=== PATIENT | female | born 1970 | race Caucasian/White ===

== ENCOUNTER 2024-05-30 08:35 | Outpatient (OUT) | payer OTHER, SELFPAY ==
[2024-05-30 09:08] LABS: Basophils Absolute Auto 0.1 10^3/uL (0.0-0.1); Basophils Percent Auto 0.6 % (0.2-2.0); Eosinophils Absolute Auto 0.1 10^3/uL (0.0-0.7); Eosinophils Percent Auto 0.6 % (0.9-7.0); Hematocrit 42.5 % (36.0-48.0); Immature Granulocytes Abs Auto 0.03 10^3/uL (0.00-0.03); Immature Granulocytes Pct Auto 0.3 % (0.0-0.5); Lymphocytes Absolute Auto 3.3 10^3/uL (1.2-3.8); Lymphocytes Percent Auto 35.1 % (20.5-60.0); Mean Corpuscular HGB Conc 32.9 g/dL (29.9-35.2); Mean Corpuscular Hemoglobin 30.2 pg (26.7-34.0); Mean Corpuscular Volume 91.6 fL (81.0-99.0); Mean Platelet Volume 9.9 fL (9.5-13.5); Monocytes Absolute Auto 0.6 10^3/uL (0.3-0.8); Monocytes Percent Auto 6.7 % (1.7-12.0); Neutrophils Absolute Auto 5.3 10^3/uL (1.4-6.5); Neutrophils Percent Auto 56.7 % (43.0-75.0); Platelet Count 344 10^3/uL (150-450); Red Blood Count 4.64 10^6/uL (4.20-5.40); Red Cell Distribution Width 13.2 % (11.0-15.0); White Blood Count 9.4 10^3/uL (4.0-11.0)
[2024-05-30 09:26] LABS: Estimated Average Glucose 131 mg/dL; Glycohemoglobin A1C 6.2 % (4.5-6.2)
[2024-05-30 09:26] LABS: Creatinine Urine Random 340.21 mg/dL (20.00-300.00); Microalbumin Urine Random <1.3 mg/dL (<=30.0)
[2024-05-30 09:28] LABS: Alanine Aminotransferase 62 U/L (14-59); Albumin Level 3.7 g/dL (3.4-5.0); Alkaline Phosphatase 139 U/L (46-116); Anion Gap 10.9; Aspartate Amino Transferase 28 U/L (15-37); BUN Creatinine Ratio 10.1; Bilirubin Total 0.7 mg/dL (0.2-1.0); Calcium 9.2 mg/dL (8.5-10.1); Carbon Dioxide 29.9 mmol/L (21.0-32.0); Chloride 104 mmol/L (98-107); Chol HDL Ratio 3.4; Cholesterol 139 mg/dL (<=200); Estimated GFR (African America >60 (>=60 mL/min/1.73m^2); Estimated GFR (Non-African Ame 58 (>=60 mL/min/1.73m^2); Globulin 3.6 g/dL; Glucose 109 mg/dL (74-106); HDL Cholesterol 41 mg/dL (40-60); LDL Cholesterol Calculated 74.2 mg/dL; Potassium 3.8 mmol/L (3.5-5.1); Sodium 141 mmol/L (136-145); Thyroid Stimulating Hormone 1.336 uIU/mL (0.358-3.740); Total Protein 7.3 g/dL (6.4-8.2); Triglycerides 119 mg/dL (<=150); VLDL CHOLESTEROL 23.8 mg/dL
== END 2024-05-30 08:36 | disposition home or self-care (01) ==
LOC: LAB 08:41
PROVIDERS: PCP Nurse Practitioner; Visit Provider Nurse Practitioner
DX: Z00.00 Encounter for general adult medical examination without abnormal findings (principal); E11.65 Type 2 diabetes mellitus with hyperglycemia
CPT/HCPCS: 36415; 80053; 80061; 82043; 82570; 83036; 84443; 85025

== ENCOUNTER 2024-09-26 10:16 | Outpatient (OUT) | payer OTHER, SELFPAY ==
[2024-09-26 10:52] LABS: Anion Gap 11.2; Calcium 9.2 mg/dL (8.5-10.1); Carbon Dioxide 30.6 mmol/L (21.0-32.0); Chloride 103 mmol/L (98-107); Estimated GFR (African America >60 (>=60 mL/min/1.73m^2); Estimated GFR (Non-African Ame 58 (>=60 mL/min/1.73m^2); Glucose 152 mg/dL (74-106); Potassium 3.8 mmol/L (3.5-5.1); Sodium 141 mmol/L (136-145)
== END 2024-09-26 10:17 | disposition home or self-care (01) ==
LOC: LAB 10:19
PROVIDERS: PCP Nurse Practitioner
DX: I25.10 Atherosclerotic heart disease of native coronary artery without angina pectoris (principal)
CPT/HCPCS: 36415; 80048

== ENCOUNTER 2024-12-22 09:28 | Outpatient (OUT) | payer OTHER, SELFPAY ==
--- OUTSIDE RECORDS SUMMARY | 2024-12-22 09:48 | XMS_ITS | CCD ---
Author Organization [facility] Care Team Providers Care Manager Continuous Improvement Name Role Phone DR CEZAR SAHNI Consulting Unavailable PAY, DR CORONADO Attending Unavailable PAY, DR CORONADO Admitting Unavailable PAY, DR CORONADO Consulting Unavailable GRECHNY, SYED CROOKS Consulting Unavailable Anderson ACCOUNT RESOLUTION SPECIALIST-PRESSFITTER, Ezio J Primary Care [facility] er Anderson ACCOUNT RESOLUTION SPECIALIST-PRESSFITTER, Ezio J Primary Care [facility] er MARIIA DOWELL Attending Unavailable ANDERSONEZIO KRISHNAMURTHY Referring Unavailable ANDERSON, EZIO J Primary Care Unavailable ANDERSONEZIO J Attending Unavailable ANDERSONALLEYEZIO J Referring Unavailable ANDERSON, EZIO J Primary Care Unavailable ANDERSONALLEYEZIO J Attending Unavailable ANDERSONALLEYEZIO J Referring Unavailable ANDERSON, EZIO J Primary Care Unavailable ANDERSON, EZIO J Attending Unavailable ANDERSON, EZIO J Referring Unavailable ANDERSON, EZIO J Primary Care Unavailable Allergies Allergy Classification Reported Allergen(s) Allergy Type Date of Onset Reaction(s) Facility (16 sources) Blue Dye; Translations: [BLUE DYE] Drug allergy (disorder) 10-10-2021 [facility] Repository Medications Current Medications Medication Drug Class(es) Dates Sig (Normalized) Sig (Original) aspirin 81 mg delayed release oral tablet (6 sources) Platelet Aggregation Inhibitor, Nonsteroidal Anti-inflammatory Drug Start: 08-28-2023 take 1 tablet by mouth in the morning aspirin 81 mg TAKE 1 TABLET (81 MG TOTAL) BY MOUTH IN THE MORNING 30 tablet 11 08/28/2023 Active Start: 11-24-2022 End: 08-28-2023 take 1 tablet by mouth in the morning aspirin 81 mg Take 1 tablet (81 mg total) by mouth in the morning. 30 tablet 9 11/24/2022 08/28/2023 Discontinued atorvastatin 80 mg oral tablet (17 sources) HMG-CoA Reductase Inhibitor Start: 05-05-2024 End: 10-09-2024 take 1 tablet by mouth once daily atorvastatin (LIPITOR) 80 mg tablet Indications: Mixed hyperlipidemia Take 1 tablet (80 mg total) by mouth nightly. 90 tablet 1 10/09/2024 Active Start: 02-28-2023 End: 05-03-2024 take 1 tablet by mouth once daily atorvastatin (LIPITOR) 80 mg tablet Indications: Mixed hyperlipidemia Take 1 tablet (80 mg total) by mouth nightly. 90 tablet 2 07/16/2023 05/03/2024 Discontinued (Reorder) blood-glucose meter kit (13 sources) Start: 04-03-2023 blood-glucose meter kit Indications: Type 2 diabetes mellitus with hyperglycemia, without long-term current use of insulin ([facility] Monitor blood sugars twice daily 1 each 04/03/2023 Active Start: 04-03-2023 blood-glucose meter kit Indications: Type 2 diabetes mellitus with hyperglycemia, without long-term current use of insulin ([facility] Monitor blood sugars twice daily 1 each 0 04/03/2023 Active calcium carbonate 1500 mg oral tablet (8 sources) take 1 tablet by mouth once daily at breakfast calcium carbonate (OS-ADRI) 600 mg elemental (1,500 mg) tablet Take 1 tablet (600 mg total) by mouth daily with breakfast. Active clopidogrel 75 mg oral tablet (17 sources) P2Y12 Platelet Inhibitor Start: 023 End: 025 take 1 tablet by mouth in the morning clopidogreL (PLAVIX) 75 mg tablet Indications: HTN (hypertension), benign TAKE 1 TABLET (75 MG TOTAL) BY MOUTH IN THE MORNING 90 tablet 2 07/04/2024 Active isopropyl alcohol 0.7 ml/ml medicated pad (13 sources) Start: alcohol swabs (ALCOHOL PREP PADS) pads, medicated Indications: Type 2 diabetes mellitus with hyperglycemia, without long-term current use of insulin ([facility]) Apply 1 Pad topically in the morning and at bedtime. 100 each 3 04/03/2023 Active losartan potassium 50 mg oral tablet (2 sources) Angiotensin 2 Receptor Daniel Start: 025 take 1 tablet by mouth in the morning losartan (COZAAR) 50 mg tablet Indications: Primary hypertension Take 1 tablet (50 mg total) by mouth in the morning. 30 tablet 11 09/08/2024 Active spironolactone 25 mg oral tablet (17 sources) Aldosterone Antagonist Start: 023 End: 025 take 1 tablet by mouth in the morning spironolactone (ALDACTONE) 25 mg tablet Indications: HTN (hypertension), benign TAKE 1 TABLET (25 MG TOTAL) BY MOUTH IN THE MORNING 90 tablet 1 07/04/2024 Active tiZANidine 4 mg oral tablet (9 sources) Central alpha-2 Adrenergic Agonist Start: 024 take 1 tablet by mouth every eight hours as needed for muscle spasms tiZANidine (ZANAFLEX) 4 mg tablet Indications: Back muscle spasm Take 1 tablet (4 mg total) by mouth every 8 (eight) hours as needed for muscle spasms. 30 tablet 1 05/27/2024 Active Start: 02-28-2023 take 1 tablet by lela th every eight hours as needed for muscle spasms tiZANidine (ZANAFLEX) 4 mg tablet Indications: Back muscle spasm Take 1 tablet (4 mg total) by mouth every 8 (eight) hours as needed for muscle spasms. May cause drowsiness 10 tablet 0 02/28/2023 Active Completed/Discontinued Medications Medication Drug Class(es) Dates Sig (Normalized) Sig (Original) ibuprofen 800 mg oral tablet (13 sources) Nonsteroidal Anti-inflammatory Drug Start: 02-28-2023 End: 10-09-2024 take 1 tablet by mouth every eight hours as needed for pain ibuprofen (MOTRIN) 800 mg tablet Indications: Back pain of lumbar region with sciatica Take 1 tablet (800 mg total) by mouth every 8 (eight) hours as needed for pain. Take with food 40 tablet 1 02/28/2023 10/09/2024 Discontinued (Therapy completed) meloxicam 15 mg oral tablet (1 source) Nonsteroidal Anti-inflammatory Drug Start: 03-21-2023 End: 07-16-2023 take 1 tablet by mouth in the morning meloxicam (MOBIC) 15 mg tablet Indications: Back pain of lumbar region with sciatica Take 1 tablet (15 mg total) by mouth in the morning. Stop Motrin, ibuprofen, Aleve, naproxen while taking this medication. 90 tablet 1 03/21/2023 07/16/2023 Discontinued (Therapy completed) 24 hr metFORMIN hydrochloride 500 mg extended release oral tablet (3 sources) Biguanide Start: 04-03-2023 End: 08-02-2023 take 1 tablet by mouth once daily at breakfast metFORMIN XR (GLUCOPHAGE XR) 500 mg 24 hr tablet Indications: Type 2 diabetes mellitus with hyperglycemia, without long-term current use of insulin ([facility]) Take 1 tablet (500 mg total) by mouth daily with breakfast. 90 tablet 1 07/16/2023 08/02/2023 Discontinued (Therapy completed) 24 hr metoprolol succinate 25 mg extended release oral tablet (16 sources) beta-Adrenergic Daniel Start: 07-04-2024 End: 09-08-2024 take 1 tablet by mouth every twenty-four hours in the morning metoprolol succinate XL (TOPROL XL) 25 mg 24 hr tablet Indications: HTN (hypertension), benign TAKE 1 TABLET (25 MG TOTAL) BY MOUTH IN THE MORNING 90 tablet 1 07/04/2024 09/08/2024 Discontinued (Therapy completed) Start: 01-12-2023 End: 07-04-2024 take 1 tablet by mouth every twenty-four hours in the morning metoprolol succinate XL (TOPROL XL) 25 mg 24 hr tablet Indications: HTN (hypertension), benign , NSTEMI (non-ST elevated myocardial infarction) ([facility]) Take 1 tablet (25 mg total) by mouth in the morning. 90 tablet 1 11/21/2023 Active peg 3350-sod sulf,chlr-pot-m ag 178.7-7.3-0.5 gram recon soln (1 source) Start: 08-12-2023 End: 08-24-2023 peg 3350-sod sulf,chlr-pot-m ag 178.7-7.3-0.5 gram recon soln Indications: Personal history of colonic polyps Take one container twice as directed by scheduled instructions 2 each 0 08/12/2023 08/24/2023 Discontinued (Therapy completed) Problems Active Problems Problem Classification Problem Date Documented Da te Episodic/Chronic Acute cerebrovascular disease (14 sources) Cerebral infarction, unspecified; Translations: [Cerebrovascular accident] Onset: 10-10-2021 02-27-2022 Chronic Acute cerebrovascular disease (1 source) NIHSS score 6; Translations: [NIHSS SCORE 6] Onset: 10-12-2021 Episodic Acute myocardial infarction (20 sources) Non-ST elevation (NSTEMI) myocardial infarction; Translations: [Myocardial infarction] Onset: 10-10-2021 02-27-2022 Chronic Coronary atherosclerosis and other heart disease (20 sources) Coronary atherosclerosis; Translations: [Atherosclerotic heart disease of [place] coronary artery without angina pectoris] Onset: 10-10-2021 Resolved: 09-04-2023 09-04-2023 Chronic Diabetes mellitus with complications (7 sources) Hyperglycemia due to type 2 diabetes mellitus; Translations: [Type 2 diabetes mellitus with hyperglycemia] Onset: 11-21-2023 05-27-2024 Chronic Diabetes mellitus without complication (2 sources) Patient encounter status; Translations: [Type 1 diabetes mellitus without complications] Onset: 11-21-2023 11-21-2023 Chronic Disorders of lipid metabolism (18 sources) Mixed hyperlipidemia; Translations: [Mixed hyperlipidemia] Onset: 04-03-2023 05-27-2024 Chronic Essential hypertension (20 sources) Benign hypertension; Translations: [Essential (primary) hypertension] Onset: 04-03-2023 05-27-2024 Chronic Hypertension with complications and secondary hypertension (1 source) Hypertensive emergency; Translations: [HYPERTENSIVE EMERGENCY] Onset: 10-12-2021 Chronic Nonspecific chest pain (4 sources) Other chest pain; Translations: [Chest pain, unspecified] Onset: 10-10-2021 Episodic Other endocrine disorders (1 source) Hypoglycemia; Translations: [Hypoglycemia, unspecified] 08-02-2023 Chronic Other nervous system disorders (1 source) Aphasia; Translations: [APHASIA] Onset: 10-12-2021 Chronic Substance-related disorders (1 source) Nicotine dependence, cigarettes, uncomplicated; Translations: [NICOTINE DEPEND CIGARETTES UNCOMP] Onset: 10-12-2021 Chronic Unclassified (1 source) CONTACT W/AND (SUSP) EXPOS COVID-19; Translations: [CONTACT W/AND (SUSP) EXPOS COVID-19] Onset: 10-12-2021 Unclassified (1 source) Annual Exam Onset: 05-27-2024 Past or Other Problems Problem Classification Problem Date Documented Da te Episodic/Chronic Mood disorders (13 sources) Mood disorders Onset: 05-27-2024 Resolved: 10-09-2024 05-27-2024 Noninfectious gastroenteritis (11 sources) Non-specific colitis; Translations: [Noninfective gastroenteritis and colitis, unspecified] Onset: 08-24-2023 08-24-2023 Episodic Other and unspecified benign neoplasm (13 sources) Polyp of sigmoid colon; Translations: [Polyp of colon] Onset: 08-04-2022 08-04-2022 Episodic Other and unspecified benign neoplasm (11 sources) History of polyp of colon; Translations: [History of colonic polyps] Onset: 08-12-2023 02-26-2024 Episodic Other and unspecified benign neoplasm (11 sources) Polyp of transverse colon; Translations: [Polyp of colon] Onset: 08-24-2023 08-24-2023 Episodic Other gastrointestinal disorders (13 sources) Abnormal feces; Translations: [Other fecal abnormalities] Onset: 07-19-2022 07-19-2022 Episodic Other screening for suspected conditions (not mental disorders or infectious disease) (4 sources) Patient encounter status; Translations: [Encounter for screening mammogram for malignant neoplasm of breast] Onset: 11-21-2023 05-27-2024 Episodic Spondylosis; intervertebral disc disorders; other back problems (2 sources) Spasm of back muscles; Translations: [Muscle spasm of back] Onset: 05-27-2024 05-27-2024 Episodic Unclassified (13 sources) Onset: 05-27-2024 Resolved: 10-09-2024 05-27-2024 Results Test Name Value Interpretation Reference Range Facil ity POCT EKGon 09-08-2024 [facility] POCT Hemoglobin A1con 2023 HbA1c (Bld) [Mass fraction] 6.0 g/dL 4 - 7 g/dL [facility] POCT Hemoglobin A1con 2023 HbA1c (Bld) [Mass fraction] 5.9 g/dL 4 - 7 g/dL [facility] BNPon 10-10-2021 Natriuretic peptide B (Bld) [Mass/Vol] 108.0 pg/mL Normal <=900.0 [facility] Comment on above: Performed By: #### T SH, CMADM, LIPA, CMP, BNP #### [facility] [address] [place] [address] Dr. Pollo Dyson CARDIAC DENISE ADMITon 022 CK [Catalytic activity/Vol] 275 U/L Critically high 26-192 [facility] Comment on above: Performed By: #### T SH, CMADM, LIPA, CMP, BNP #### [facility] [address] [address] [address] Pollo Dyson CK.MB [Mass/Vol] 10.38 ng/mL Critically high <=3.60 [facility] Comment on above: Result Comment: TEST REPEATED CRITICAL VALUE VERIFIED Performed By: #### T SH, CMADM, LIPA, CMP, BNP #### [facility] [address] [address] [address] Pollo Dyson HSTROP 2475.4 pg/mL Critically high 4.0-51.3 [facility] Comment on above: Result Comment: CUT- OFF POINTS HAVE BEEN ESTABLISHED BASED ON THE FOURTH UNIVERSAL DEFINITIONS OF MYOCARDIAL INFARCTION. THE UPPER REFERENCE LIMIT (URL) OF TROPONIN, DEFINED THE 99TH PERCENTILE OF cTnI DISTRIBUTION IN A REFERENCE POPULATION, HAS BEEN CONFIRMED THE DECISION THRESHOLD FOR MT DIAGNOSIS. TEST REPEATED CRITICAL VALUE VERIFIED Performed By: #### T SH, CMADM, LIPA, CMP, BNP #### [facility] [address] [address] [address] Pollo Dyson FAZAL 497 ng/mL Critically high 9-82 [facility] Comment on above: Result Comment: TEST REPEATED CRITICAL VALUE VERIFIED Performed By: #### T SH, CMADM, LIPA, CMP, BNP #### [facility] [address] [address] [address] Pollo Dyson CBC AUTO DIFFon 10-10-2021 BASO # 0.1 103/ul Normal 0.0-0.1 [facility] Comment on above: Performed By: #### P T, DDIM, PTT #### [facility] [address] [address] [address] Pollo Dyson Basophils/100 WBC (Bld) 0.5 % Normal 0.2-2.0 [facility] Comment on above: Performed By: #### P T, DDIM, PTT #### [facility] [address] [place] [address] Dr. Pollo Dyson EO # 0.0 103/ul Normal 0.0-0.7 [facility] Comment on above: Performed By: #### P T, DDIM, PTT #### [facility] [address] [place] [address] Dr. Pollo Dyson Eosinophils/100 WBC (Bld) 0.1 % Critically low 0.9-7.0 [facility] Comment on above: Performed By: #### P T, DDIM, PTT #### [facility] [address] [place] [address] Dr. Pollo Dyson Erythrocyte distribution width (RBC) [Ratio] 14.3 % Normal 11.0-15.0 [facility] Comment on above: Performed By: #### P T, DDIM, PTT #### [facility] [address] [place] [address] Dr. Pollo Dyson Hematocrit (Bld) [Volume fraction] 45.9 % Normal 36.0-48.0 [facility] Comment on above: Performed By: #### P T, DDIM, PTT #### [facility] [address] [place] [address] Dr. Pollo Dyson Hemoglobin (Bld) [Mass/Vol] 15.4 g/dL Normal 12.0-16.0 [facility] Comment on above: Performed By: #### P T, DDIM, PTT #### [facility] [address] [place] [address] Dr. Pollo Dyson IG # 0.05 10e3/ul Critically high 0.00-0.03 [facility] Comment on above: Performed By: #### P T, DDIM, PTT #### [facility] [address] [place] [address] Dr. Pollo Dyson IG % 0.3 % Normal 0.0-0.5 [facility] Comment on above: Performed By: #### P T, DDIM, PTT #### [facility] [address] [place] [address] Dr. Pollo Dyson LYMPH # 2.2 103/ul Normal 1.2-3.8 [facility] Comment on above: Performed By: #### P T, DDIM, PTT #### [facility] [address] [place] [address] Dr. Pollo Dyson Lymphocytes/100 WBC (Bld) 13.8 % Critically low 20.5-60.0 [facility] Comment on above: Performed By: #### P T, DDIM, PTT #### [facility] [address] [place] [address] Dr. Pollo Dyson MANUAL DIFF REQ NO Normal [facility] Comment on above: Performed By: #### P T, DDIM, PTT #### [facility] [address] [place] [address] Dr. Pollo Dyson MCH (RBC) [Entitic mass] 29.9 pg Normal 26.7-34.0 [facility] Comment on above: Performed By: #### P T, DDIM, PTT #### [facility] [address] [place] [address] Dr. Pollo Dyson MCHC (RBC) [Mass/Vol] 33.6 g/dL Normal 29.9-35.2 [facility] Comment on above: Performed By: #### P T, DDIM, PTT #### [facility] [address] [place] [address] Dr. Pollo Dyson MCV (RBC) [Entitic vol] 89.1 fL Normal 81.0-99.0 [facility] Comment on above: Performed By: #### P T, DDIM, PTT #### [facility] [address] [place] [address] Dr. Pollo Dyson MONO # 0.7 103/ul Normal 0.3-0.8 [facility] Comment on above: Performed By: #### P T, DDIM, PTT #### [facility] [address] [place] [address] Dr. Pollo Dyson Monocytes/100 WBC (Bld) 4.3 % Normal 1.7-12.0 [facility] Comment on above: Performed By: #### P T, DDIM, PTT #### [facility] [address] [address] [address] Pollo Dyson NEUT # 12.9 103/ul Critically high 1.4-6.5 [facility] Comment on above: Performed By: #### P T, DDIM, PTT #### [facility] [address] [place] [address] Dr. Pollo Dyson Neutrophils/100 WBC (Bld) 81.0 % Critically high 43.0-75.0 [facility] Comment on above: Performed By: #### P T, DDIM, PTT #### [facility] [address] [place] [address] Dr. Pollo Dyson Platelet mean volume (Bld) [Entitic vol] 9.7 fL Normal 9.5-13.5 [facility] Comment on above: Performed By: #### P T, DDIM, PTT #### [facility] [address] [place] [address] Dr. Pollo Dyson PLT 428 103/ul Normal 150-450 [facility] Comment on above: Performed By: #### P T, DDIM, PTT #### [facility] [address] [place] [address] Dr. Pollo Dyson RBC 5.15 106/ul Normal 4.20-5.40 [facility] Comment on above: Performed By: #### P T, DDIM, PTT #### [facility] [address] [place] [address] Dr. Pollo Dyson WBC 15.9 103/ul Critically high 4.0-11.0 [facility] Comment on above: Performed By: #### P T, DDIM, PTT #### [facility] [address] [place] [address] STROKE HEAD WOon 10-11-19 CT STROKE HEAD WO EXAMINATION: CT STROKE HEAD WO HISTORY: CHEST PAIN, UNSPECIFIED COMPARISON: No relevant comparison available. TECHNIQUE: Axial CT images were obtained without IV contrast. Dose reduction techniques were achieved by using automated exposure control and/or adjustment of mA and/or kV according to patient size and/or use of iterative reconstruction technique. FINDINGS: BRAIN: No edema, hemorrhage, mass, acute infarction, or inappropriate atrophy. CSF SPACES: No hydrocephalus, subarachnoid hemorrhage, or mass. Appropriate for age. SKULL: No fracture, mass, or other significant visible lesion. SINUSES: No significant mucosal thickening or fluid on the limited views. ORBITS: No appreciable abnormality on the limited views. OTHER: Negative IMPRESSION: 1. No intracranial hemorrhage. 2. Normal CT appearance of the brain. Electronically authenticated by: CEZAR SAHNI Date: 2021-10-10 16:10 Normal [facility] CTA ABD/PELVIS WO W CONon CTA ABD/PELVIS WO W CON EXAMINATION: CTA CHEST WO W CON, CTA ABD/PELVIS WO W CON HISTORY: CHEST PAIN, UNSPECIFIED COMPARISON: No relevant comparison available. TECHNIQUE: After obtaining the patient's consent, CT images of the chest, abdomen and pelvis were obtained with non-ionic intravenous contrast material. Axial, Coronal, and Sagittal images. Multi-planar reformatted/3-D images were created to optimize visualization of vascular anatomy. Dose reduction techniques were achieved by using automated exposure control and/or adjustment of mA and/or kV according to patient size and/or use of iterative reconstruction technique. FINDINGS: PULM VASC: No pulmonary embolism or abnormal opacity. LUNGS: No visible pulmonary disease. PLEURA: No mass, effusion, or pneumothorax. JENNIFER: No mass or adenopathy. MEDIASTINUM: No mass or adenopathy. CARDIAC: No enlargement, pericardial effusion, or pericardial thickening. CHEST WALL: No mass or axillary adenopathy. AORTA/VASCULAR: Moderate-marked noncalcified plaque within the distal aorta with marked narrowing at bifurcation. Moderate narrowing of left common iliac artery. No aneurysm. CELIAC ARTERY: Normal celiac vessels. SMA: Normal mesenteric vessels. RENAL ARTERIES: Normal renal vessels. LIVER: No enlargement, atrophy, abnormal density, or significant focal lesion. BILIARY: No visible dilatation or calcification. PANCREAS: No lesion, fluid collection, ductal dilatation, or atrophy. SPLEEN: No enlargement or focal lesion. ADRENALS: Mild left adrenal gland hypertrophy. KIDNEYS: No mass, obstruction, or calcification. BOWEL/MESENTERY: No visible mass, obstruction, or bowel wall thickening. RETROPERITONEUM: No mass or adenopathy. ABDOMINAL WALL: No mass or hernia. BONES: No bony lesion or fracture. OTHER: Negative. IMPRESSION: 1. No pulmonary embolism or pulmonary infiltrates. 2. Atherosclerotic narrowing of the distal aorta without aneurysm or obstruction. 3. No acute or suspicious findings to account for patient's symptoms. Electronically authenticated by: CEZAR SAHNI Date: 2021-10-10 16:24 Normal [facility] Covid-19 PCR (CVDTB)on 09-25 SARS-CoV-2 (COVID-19) RNA THERESE+probe Ql (Unsp spec) Not detected Normal NOT DETECTED [facility] Comment on above: Result Comment: This test is not yet approved or cleared by the [place] FDA. When there are no FDA-approved or cleared tests available, and other criteria are met, FDA can make tests available under an emergency access mechanism called an Emergency Use Authorization (EUA). The EUA for this test is supported by the [place] of Health and Human Service's (HHS's) declaration that circumstances exist to justify the emergency use of in vitro diagnostics for the detection and/or diagnosis of the virus that causes COVID-19. This EUA will remain in effect (meaning this test can be used) for the duration of the COVID-19 declaration justifying emergency of IVDs, unless it is terminated or revoked by FDA (after which the test may no longer be used). When diagnostic testing is negative, the possibility of a false negative should be considered in the context of a patient's recent exposures and the presence of clinical signs and symptoms consistent with SARS-CoV-2. Performed By: #### P T, DDIM, PTT #### [facility] [address], [place] [address] Dr. Pollo Dyson D-DIMERon 10-10-2021 D-DIMER 0.31 mg/L FEU Normal <=0.59 [facility] Comment on above: Performed By: #### P T, DDIM, PTT #### [facility] [address], [place] [address] Dr. Pollo Dyson D-DIMER COMMENTS SEE BELOW Normal [facility] Comment on above: Result Comment: Incr eases in D-Dimer concentration observed with thromboembolic events can be variable due to localization, size, and age of the thrombus. Therefore, a thromboembolic event cannot be diagnosed with certainty on the basis of the reference range. D-Dimers may also be elevated for a variety of disorders including: advanced age, , coronary disease, cancer, liver disease, infection, inflammation, hematoma, DIC, trauma, post-surgery, diabetes, thrombolytic or anticoagulant therapy, stress, and generalized hospitalization. Performed By: #### P T, DDIM, PTT #### [facility] [address] [place] [address] Dr. Pollo Dyson LIPASEon 10-10-2021 Lipase [Catalytic activity/Vol] 76.0 U/L Normal 73.0-393.0 [facility] Comment on above: Performed By: #### T SH, CMADM, LIPA, CMP, BNP #### [facility] [address] [address] [address] Pollo Dyson POINT OF CARE GLUCOSEon 09-25 Glucose [Mass/Vol] 118 mg/dL Critically high 74-106 [facility] Comment on above: Performed By: #### P T, DDIM, PTT #### [facility] [address] [place] [address] Dr. Pollo Dyson Glucose [Mass/Vol] 127 mg/dL Critically high 74-106 [facility] Comment on above: Performed By: #### P T, DDIM, PTT #### [facility] [address] [place] [address] Dr. Pollo Dyson PROF 14(COMP METB)on 022 Albumin [Mass/Vol] 3.9 g/dL Normal 3.4-5.0 [facility] Comment on above: Performed By: #### T SH, CMADM, LIPA, CMP, BNP #### [facility] [address] [place] [address] Dr. Pollo Dyson Albumin/Globulin [Mass ratio] 0.9 {ratio} Normal [facility] Comment on above: Performed By: #### T SH, CMADM, LIPA, CMP, BNP #### [facility] [address] [place] [address] Dr. Pollo Dyson ALP [Catalytic activity/Vol] 132 U/L Critically high 46-116 [facility] Comment on above: Performed By: #### T SH, CMADM, LIPA, CMP, BNP #### [facility] [address] [place] [address] Dr. Pollo Dyson ALT [Catalytic activity/Vol] 36 U/L Normal 14-59 [facility] Comment on above: Performed By: #### T SH, CMADM, LIPA, CMP, BNP #### [facility] [address] [place] [address] Dr. Pollo Dyson Anion gap [Moles/Vol] 15.6 mmol/L Normal [facility] Comment on above: Performed By: #### T SH, CMADM, LIPA, CMP, BNP #### [facility] [address] [place] [address] Dr. Pollo Dyson AST [Catalytic activity/Vol] 47 U/L Critically high 15-37 [facility] Comment on above: Performed By: #### T SH, CMADM, LIPA, CMP, BNP #### [facility] [address] [place] [address] Dr. Pollo Dyson Bilirubin [Mass/Vol] 0.3 mg/dL Normal 0.2-1.0 [facility] Comment on above: Performed By: #### T SH, CMADM, LIPA, CMP, BNP #### [facility] [address] [place] [address] Dr. Pollo Dyson Calcium [Mass/Vol] 9.2 mg/dL Normal 8.5-10.1 [facility] Comment on above: Performed By: #### T SH, CMADM, LIPA, CMP, BNP #### [facility] [address] [place] [address] Dr. Pollo Dyson Chloride [Moles/Vol] 101 mmol/L Normal 98-107 [facility] Comment on above: Performed By: #### T SH, CMADM, LIPA, CMP, BNP #### [facility] [address] [place] [address] Dr. Pollo Dyson CO2 [Moles/Vol] 24.9 mmol/L Normal 21.0-32.0 [facility] Comment on above: Performed By: #### T SH, CMADM, LIPA, CMP, BNP #### [facility] [address] [address] [address] Pollo Dyson Creatinine [Mass/Vol] 0.80 mg/dL Normal 0.55-1.02 [facility] Comment on above: Performed By: #### T SH, CMADM, LIPA, CMP, BNP #### [facility] [address] [address] [address] Pollo Dyson EGFR-AF GHANAIAN >60 Normal >=60 [facility] Comment on above: Performed By: #### T SH, CMADM, LIPA, CMP, BNP #### [facility] [address] [place] [address] Dr. Pollo Dyson EGFR-NON AF GHANAIAN >60 Normal >=60 [facility] Comment on above: Performed By: #### T SH, CMADM, LIPA, CMP, BNP #### [facility] [address] [place] [address] Dr. Pollo Dyson Globulin (S) [Mass/Vol] 4.3 g/dL Normal [facility] Comment on above: Performed By: #### T SH, CMADM, LIPA, CMP, BNP #### [facility] [address] [place] [address] Dr. Pollo Dyson Glucose [Mass/Vol] 128 mg/dL Critically high 74-106 [facility] Comment on above: Performed By: #### T SH, CMADM, LIPA, CMP, BNP #### [facility] [address] [place] [address] Dr. Pollo Dyson Potassium [Moles/Vol] 3.5 mmol/L Normal 3.5-5.1 [facility] Comment on above: Performed By: #### T SH, CMADM, LIPA, CMP, BNP #### [facility] [address] [place] [address] Dr. Pollo Dyson Protein [Mass/Vol] 8.2 g/dL Normal 6.4-8.2 [facility] Comment on above: Performed By: #### T SH, CMADM, LIPA, CMP, BNP #### [facility] [address] [place] [address] Dr. Pollo Dyson Sodium [Moles/Vol] 138 mmol/L Normal 136-145 [facility] Comment on above: Performed By: #### T SH, CMADM, LIPA, CMP, BNP #### [facility] [address] [place] [address] Dr. Pollo Dyson Urea nitrogen [Mass/Vol] 11.0 mg/dL Normal 7.0-18.0 [facility] Comment on above: Performed By: #### T SH, CMADM, LIPA, CMP, BNP #### [facility] [address] [address] [address] Pollo Dyson Urea nitrogen/Creatinin e [Mass ratio] 13.8 mg/mg Normal [facility] Comment on above: Performed By: #### T SH, CMADM, LIPA, CMP, BNP #### [facility] [address] [place] [address] Dr. Pollo Dyson PROTIMEon 10-10-2021 INR Coag (PPP) [Relative time] 1.01 {INR} Normal [facility] Comment on above: Performed By: #### P T, DDIM, PTT #### [facility] [address] [place] [address] Dr. Pollo Dyson INR GUIDELINES SEE BELOW Normal [facility] Comment on above: Result Comment: MYLA RED INR: 2.0 - 3.0 CONDITIONS NOT LISTED BELOW 2.5 - 3.5 FOR PROSTHETIC HEART VALVE REPLACEMENT 2.5 - 3.5 RECURRENT THROMBOSIS Performed By: #### P T, DDIM, PTT #### [facility] [address] [place] [address] Dr. Pollo Dyson PT Coag (PPP) [Time] 10.9 s Normal 9.0-11.6 [facility] Comment on above: Performed By: #### P T, DDIM, PTT #### [facility] [address] [place] [address] Dr. Pollo Dyson PTTon 10-10-2021 aPTT Coag (Bld) [Time] 33.1 s Normal 22.3-36.2 [facility] Comment on above: Performed By: #### P T, DDIM, PTT #### [facility] [address] [address] [address] Pollo Dyson TSHon 10-10-2021 TSH 0.618 uIU/mL Normal 0.358-3.[address] [facility] Comment on above: Performed By: #### T SH, CMADM, LIPA, CMP, BNP #### [facility] [address] [address] [address] Pollo Dyson TSH RANGE SEE BELOW Normal [facility] Comment on above: Result Comment: <0.3 4 UIU/ml HYPERTHYROID 0.34-5.60 UIU/ml EUTHYROID >5.60 UIU/ml HYPOTHYROID Performed By: #### T SH, CMADM, LIPA, CMP, BNP #### [facility] [address] [place], [place] [address] Dr. Pollo Dyson XR CHEST 1 Von 10-10-2021 XR CHEST 1 V EXAMINATION: XR CHES T 1 V HISTORY: CHEST PAIN, UNSPECIFIED , bilateral arm pain COMPARISON: No relevant comparison available. FINDINGS: LUNGS: No significant pulmonary parenchymal abnormalities. VASCULATURE: No increased pulmonary vasculature. PLEURA: No pneumothorax, effusion, or pleural thickening. CARDIAC: No cardiomegaly or cardiac silhouette abnormality. MEDIASTINUM: No visible mass or adenopathy. BONES: No fracture or visible bone lesion. OTHER: Negative. IMPRESSION: 1. No acute cardiopulmonary process. Electronically authenticated by: CEZAR SAHNI Date: 2021-10-10 14:41 Normal [facility] Vital Signs Date Time Vital Sign Value Performing Clinician Facility 10-09-2024 13:08-0400 Body height 162.6 cm Ezio Andersonramon [employer] Work Phone: [facility] 10-09-2024 13:08-0400 Body mass index (BMI) [Ratio] 33.8 kg/m2 Ezio Anderson [employer] Work Phone: [facility] 10-09-2024 13:08-0400 Body temperature 97.39 [degF] Ezio Anderson [employer] Work Phone: [facility] 10-09-2024 13:08-0400 Body weight 89.36 kg Ezio Anderson APRN-KYM Work Phone: [facility] 10-09-2024 13:08-0400 Diastolic blood pressure 82 mm[Hg] Ezio Anderson APRN-KYM Work Phone: [facility] 10-09-2024 13:08-0400 Heart rate 87 /min Ezio Anderson APRN-KYM Work Phone: [facility] 10-09-2024 13:08-0400 Respiratory rate 18 /min Ezio Anderson APRN-KYM Work Phone: [facility] 10-09-2024 13:08-0400 SaO2% (BldA) [Mass fraction] 96 % Ezio Anderson APRN-KYM Work Phone: [facility] 10-09-2024 13:08-0400 Systolic blood pressure 138 mm[Hg] Ezio Anderson APRN-KYM Work Phone: [facility] 09-08-2024 12:47-0400 Body height 162.6 cm Mariia Dowell MD Work Phone: [facility] 09-08-2024 12:47-0400 Body mass index (BMI) [Ratio] 34.16 kg/m2 Mariia Dowell MD Work Phone: [facility] 09-08-2024 12:47-0400 Body weight 90.27 kg Mariia Dowell MD Work Phone: [facility] 09-08-2024 12:47-0400 Diastolic blood pressure 96 mm[Hg] Mariia Dowell MD Work Phone: [facility] 09-08-2024 12:47-0400 Heart rate 81 /min Mariia Dowell MD Work Phone: [facility] 09-08-2024 12:47-0400 SaO2% (BldA) [Mass fraction] 97 % Mariai Dowell MD Work Phone: [facility] 09-08-2024 12:47-0400 Systolic blood pressure 148 mm[Hg] Mariia Dowell MD Work Phone: [facility] 05-27-2024 07:29-0500 Body height 162.6 cm Ezio Anderson ACCOUNT RESOLUTION SPECIALIST-PRESS[employer]IT[employer] Work Phone: [facility] 05-27-2024 07:29-0500 Body mass index (BMI) [Ratio] 34.74 kg/m2 Ezio Anderson ACCOUNT RESOLUTION SPECIALIST-[employer]TER Work Phone: [facility] 05-27-2024 07:29-0500 Body temperature 97.3 [degF] Ezio Davisillo ACCOUNT RESOLUTION SPECIALIST-PRESS[employer]TER Work Phone: [facility] 05-27-2024 07:29-0500 Body weight 91.81 kg Ezio Davisillo ACCOUNT RESOLUTION SPECIALIST-[employer]TER Work Phone: [facility] 05-27-2024 07:29-0500 Diastolic blood pressure 80 mm[Hg] Ezio Davisillo ACCOUNT RESOLUTION SPECIALIST-[employer]TER Work Phone: [facility] 05-27-2024 07:29-0500 Heart rate 71 /min Ezio Anderson ACCOUNT RESOLUTION SPECIALIST-PRESS[employer]TER Work Phone: [facility] 05-27-2024 07:29-0500 SaO2% (BldA) [Mass fraction] 96 % Ezio Anderson ACCOUNT RESOLUTION SPECIALIST-PRESSFITTER Work Phone: [facility] 05-27-2024 07:29-0500 Systolic blood pressure 120 mm[Hg] Ezio aDvisillo ACCOUNT RESOLUTION SPECIALIST-PRESSF[employer]TER Work Phone: [facility] 11-21-2023 07:55-0400 Body height 162.6 cm Ezio Anderson ACCOUNT RESOLUTION SPECIALIST-PRESSFITTER Work Phone: [facility] 11-21-2023 07:55-0400 Body mass index (BMI) [Ratio] 33.78 kg/m2 Ezio Anderson APRN-KYM Work Phone: [facility] 11-21-2023 07:55-0400 Body temperature 97.3 [degF] Ezio Anderson APRN-KYM Work Phone: [facility] 11-21-2023 07:55-0400 Body weight 89.27 kg Ezio Anderson APRN-PRESSFITTER Work Phone: [facility] 11-21-2023 07:55-0400 Diastolic blood pressure 82 mm[Hg] Ezio Anderson APRN-KYM Work Phone: [facility] 11-21-2023 07:55-0400 Heart rate 71 /min Ezio Anderson APRN-KYM Work Phone: [facility] 11-21-2023 07:55-0400 SaO2% (BldA) [Mass fraction] 96 % Ezio Anderson APRN-KYM Work Phone: [facility] 11-21-2023 07:55-0400 Systolic blood pressure 130 mm[Hg] Ezio Anderson APRN-KYM Work Phone: [facility] 08-23-2023 10:29-0400 Body height 162.6 cm [facility] 1 [facility] 08-23-2023 10:29-0400 Body mass index (BMI) [Ratio] 32.61 kg/m2 [facility] 1 [facility] 08-23-2023 10:29-0400 Body weight 86.18 kg P[facility] 1 [facility] 08-02-2023 15:19-0500 Body height 160 cm Ezio Anderson APRN-PRESSFITTER Work Phone: [facility] 08-02-2023 15:19-0500 Body mass index (BMI) [Ratio] 35.48 kg/m2 Ezio Anderson APRN-KYM Work Phone: [facility] 08-02-2023 15:19-0500 Body temperature 97.5 [degF] Ezio Anderson APRN-PRESSFITTER Work Phone: [facility] 08-02-2023 15:19-0500 Body weight 90.86 kg Ezio Anderson APRN-KYM Work Phone: [facility] 08-02-2023 15:19-0500 Diastolic blood pressure 68 mm[Hg] Ezio Anderson APRN-KYM Work Phone: [facility] 08-02-2023 15:19-0500 Heart rate 59 /min Ezio Anderson APRN-KYM Work Phone: [facility] 08-02-2023 15:19-0500 SaO2% (BldA) [Mass fraction] 98 % Ezio Anderson APRN-KYM Work Phone: [facility] 08-02-2023 15:19-0500 Systolic blood pressure 140 mm[Hg] Ezio Anderson APRN-KYM Work Phone: [facility] 07-16-2023 07:57-0500 Body height 160 cm Ezio Anderson APRN-KYM Work Phone: [facility] 07-16-2023 07:57-0500 Body mass index (BMI) [Ratio] 35.02 kg/m2 Ezio Anderson APRN-KYM Work Phone: [facility] 07-16-2023 07:57-0500 Body temperature 97.81 [degF] Ezio Anderson APRN-KYM Work Phone: [facility] 07-16-2023 07:57-0500 Body weight 89.68 kg Ezio Anderson APRN-PRESSFITTER Work Phone: [facility] 07-16-2023 07:57-0500 Diastolic blood pressure 80 mm[Hg] Ezio Justin [employer] Work Phone: [facility] 07-16-2023 07:57-0500 Heart rate 70 /min Ezio Justin [employer] Work Phone: [facility] 07-16-2023 07:57-0500 SaO2% (BldA) [Mass fraction] 98 % Ezio Justin [employer] Work Phone: [facility] 07-16-2023 07:57-0500 Systolic blood pressure 130 mm[Hg] Ezio Andersonramon WAY[employer] Work Phone: [facility] Encounters Encounter Date Encounter Type Care Provider Facility Start: 10-09-2024 End: 10-09-2024 Office outpatient visit 15 minutes Ezio CADET Work Phone: [facility] Comment on above: Type 2 diabetes linus itus with hyperglycemia, without long-term current use of insulin ([facility]) (Primary Dx); Mixed hyperlipidemia; Encounter for screening mammogram for malignant neoplasm of breast Start: 10-09-2024 End: 10-09-2024 ambulatory [facility] [place][note 2] [facility]ulatory [facility] Start: 09-08-2024 End: 09-08-2024 Office outpatient visit 25 minutes Mariia Dowell MD Work Phone: [facility] Comment on above: Atherosclerosis of n ative coronary artery of [place] heart without angina pectoris (Primary Dx); Primary hypertension Start: 09-08-2024 End: 09-08-2024 ambulatory [facility] Start: 07-03-2024 End: 07-04-2024 Refill Ezio Anderson APRN-KYM Work Phone: [facility] Comment on above: HTN (hypertension), benign Start: 05-27-2024 End: 05-27-2024 Patient encounter procedure Ezio Anderson APRN-KYM Work Phone: [facility] Start: 05-27-2024 End: 05-27-2024 Periodic preventive med est patient 40-64yrs Ezio Link Justin [employer] Work Phone: [facility] Comment on above: Annual physical exam (Primary Dx); Type 2 diabetes mellitus with hyperglycemia, without long-term current use of insulin ([facility] Blood tests for routine general physical examination; Mixed hyperlipidemia; HTN (hypertension), benign; Back muscle spasm; Encounter for screening mammogram for malignant neoplasm of breast Start: 05-27-2024 End: 05-27-2024 Physical examination Ezio Link Justin [employer] Work Phone: [facility] Start: 05-27-2024 End: 05-27-2024 ambulatory [facility] [place][note 2] Ambulatory [facility] Start: 05-27-2024 Encounter for genera l adult medical examination without abnormal findings [facility] [place][note 2] Ambulatory [facility] Start: 05-03-2024 End: 05-05-2024 Refill Ezio J Justin SANCHEZN-PRESSFITTER Work Phone: [facility] Comment on above: Mixed hyperlipidemia Start: 01-30-2024 End: 01-30-[address] [facility] Comment on above: Type 2 diabetes linus itus with hyperglycemia, without long-term current use of insulin ([facility]) Start: 11-21-2023 End: 11-21-2023 Office outpatient visit 25 minutes Ezio Anderson APRN-[employer] Work Phone: [facility] Comment on above: Type 2 diabetes linus itus with hyperglycemia, without long-term current use of insulin ([facility]) (Primary Dx); HTN (hypertension), benign; NSTEMI (non-ST elevated myocardial infarction) ([facility]); Encounter for screening mammogram for malignant neoplasm of breast; Comprehensive diabetic foot examination, type 1 DM, encounter for ([facility]) Start: 11-21-2023 End: 11-21-2023 ambulatory EZIODOREEN ANDERSON [facility] Start: 10-12-2023 End: 10-15-2023 Refill Ezio Anderson ACCOUNT RESOLUTION SPECIALIST-PRESSFITTER Work Phone: [facility] Comment on above: Type 2 diabetes linus itus with hyperglycemia, without long-term current use of insulin ([facility]) Start: 08-31-2023 Telephone encounter Rebeca King [facility] Start: 08-27-2023 Refill Tylor Proctor ra ACCOUNT RESOLUTION SPECIALIST-PRESSFITTER Work Phone: [facility] Comment on above: Med Refill Start: 08-23-2023 End: 08-23-2023 ambulatory [facility] Pat Phone Call Provider 1 [facility] - Pre Admit Start: 08-02-2023 End: 08-02-2023 Office outpatient visit 15 minutes Ezio Anderson APRN-PRESSFITTER Work Phone: [facility] Comment on above: Hypoglycemia (Primar y Dx) Start: 07-16-2023 End: 07-16-2023 Office outpatient visit 25 minutes Ezio Anderson ACCOUNT RESOLUTION SPECIALIST-PRESSFITTER Work Phone: [facility] Comment on above: Type 2 diabetes linus itus with hyperglycemia, without long-term current use of insulin ([facility]) (Primary Dx); HTN (hypertension), benign; NSTEMI (non-ST elevated myocardial infarction) ([facility]); Mixed hyperlipidemia Start: 10-10-2021 End: 10-10-[address] CEZAR SAHNI Facility:[facility]1 Procedures Date Procedure Procedure Detail Performing Clinician Start: 10-09-2024 Adult depression scr eening assessment Ezio Anderson ACCOUNT RESOLUTION SPECIALIST-PRESSFITTER Work Phone: Start: 09-08-2024 Ecg routine ecg w/le ast 12 lds w/i&r Mariia Dowell MD Work Phone: Start: 09-08-2024 Follow-up visit Follow-up MARIIA DELANEY Start: 05-27-2024 Adult depression scr eening assessment Ezio Anderson ACCOUNT RESOLUTION SPECIALIST-[employer]TER Work Phone: Start: 11-21-2023 Hemoglobin glycosyla dianna a1c Ezio Anderson ACCOUNT RESOLUTION SPECIALIST-[employer]TER Work Phone: Start: 11-21-2023 Adult depression scr eening assessment Ezio Davisillo ACCOUNT RESOLUTION SPECIALIST-PRESSFITTER Work Phone: Start: 08-24-2023 Colonoscopy [facility] 1 Start: 08-02-2023 Adult depression scr eening assessment Ezio Davisillo ACCOUNT RESOLUTION SPECIALIST-PRESSFITTER Work Phone: Start: 07-16-2023 Hemoglobin glycosyla dianna a1c Eziopaige Davisillo ACCOUNT RESOLUTION SPECIALISTSolutoPRESSFITTER Work Phone: Start: 07-16-2023 Adult depression scr eening assessment Ezio Davisillo ACCOUNT RESOLUTION SPECIALISTSolutoPRESSFITTER Work Phone: Start: 03-16-2023 Mammography Ezio jeffersono ACCOUNT RESOLUTION SPECIALISTSolutoPRESSFITTER Work Phone: Start: 08-04-2022 Colonoscopy Ezio jeffersono ACCOUNT RESOLUTION SPECIALIST-PRESSFITTER Work Phone: Plan of Treatment Date Care Activity Detail Author Start: 08-23-2033 Screening for malign ant neoplasm of colon Colonoscopy [facility] Start: 08-04-2032 Screening for malign ant neoplasm of colon Colonoscopy [facility] Start: 10-09-2025 Adult BMI Screening Adult BMI Screen ing [facility] Start: 10-09-2025 Depression Screening Depression Scre ening [facility] Start: 10-09-2025 Tobacco Screening Tobacco Screening [facility] Start: 09-08-2025 Adult BMI Screening Adult BMI Screen ing [facility] Start: 09-08-2025 Tobacco Screening Tobacco Screening [facility] Start: 06-01-2025 End: 06-01-2025 Patient encounter procedure 06/01/2025 4:00 PM EST Office Visit [facility] [address] [place] [id number] Ezio Anderson, ACCOUNT RESOLUTION SPECIALIST-[employer]TER [address] [place] [id number] [facility] Start: 05-27-2025 Adult BMI Follow Up Plan Adult BMI F ollow Up Plan [facility] Start: 05-27-2025 Adult BMI Screening Adult BMI Screen ing [facility] Start: 05-27-2025 Depression Screening Depression Scre ening [facility] Start: 05-27-2025 Tobacco Screening Tobacco Screening [facility] Start: 03-16-2025 End: 03-16-2025 Patient encounter procedure 03/16/2025 9:30 AM EDT Office Visit [facility] [address] [place] [id number] Christy Mera, PA-C [address] [place] [address] [facility] Start: 01-26-2025 Influenza vaccination Influenza Vacc ine [facility] Start: 11-20-2024 Adult BMI Follow Up Plan Adult BMI F ollow Up Plan [facility] Start: 11-20-2024 Adult BMI Screening Adult BMI Screen ing [facility] Start: 11-20-2024 Depression Screening Depression Scre ening [facility] Start: 11-20-2024 Diabetic foot examination Diabetic Foot Exam [facility] Start: 11-20-2024 Tobacco Screening Tobacco Screening [facility] Start: 10-09-2024 End: 10-09-2025 DBT Breast - bilateral screening Mammography screening bilateral with CAD Imaging Routine Encounter for screening mammogram for malignant neoplasm of breast Expected: 10/09/2024, Expires: 10/09/2025 [facility] Comment on above: Expected: 10/09/2024 , Expires: 10/09/2025 Start: 10-09-2024 End: 10-09-2024 Patient encounter procedure 10/09/2024 1:00 PM EDT [facility] [address] [place] [address] Ezio Anderson, ACCOUNT RESOLUTION SPECIALIST-PRESSFITTER [address] [place] [address] [facility] Start: 09-03-2024 Adult BMI Screening Adult BMI Screen ing [facility] Start: 09-03-2024 Tobacco Screening Tobacco Screening [facility] Start: 08-23-2024 Adult BMI Screening Adult BMI Screen ing [facility] Start: 08-23-2024 Tobacco Screening Tobacco Screening [facility] Start: 08-01-2024 Adult BMI Follow Up Plan Adult BMI F ollow Up Plan [facility] Start: 08-01-2024 Adult BMI Screening Adult BMI Screen ing [facility] Start: 08-01-2024 Depression Screening Depression Scre ening [facility] Start: 08-01-2024 Tobacco Screening Tobacco Screening [facility] Start: 07-16-2024 Adult BMI Follow Up Plan Adult BMI F ollow Up Plan [facility] Start: 07-16-2024 Adult BMI Screening Adult BMI Screen ing [facility] Start: 07-16-2024 Depression Screening Depression Scre ening [facility] Start: 07-16-2024 Tobacco Screening Tobacco Screening [facility] Start: 05-27-2024 End: 05-27-2025 DBT Breast - bilateral screening Mammography screening bilateral with CAD Imaging Routine Encounter for screening mammogram for malignant neoplasm of breast Expected: 05/27/2024, Expires: 05/27/2025 [facility] Comment on above: Expected: 05/27/2024 , Expires: 05/27/2025 Start: 05-27-2024 End: 05-27-2024 [facility] Start: 04-03-2024 Adult BMI Follow Up Plan Adult BMI F ollow Up Plan [facility] Start: 03-16-2024 Screening for malign ant neoplasm of breast Mammogram [facility] Start: 01-27-2024 Influenza vaccination Influenza Vacc ine [facility] Start: 11-21-2023 End: 06-26-2025 DBT Breast - bilateral screening Mammography screening bilateral with CAD Imaging Routine Encounter for screening mammogram for malignant neoplasm of breast Expected: 11/21/2023, Expires: 11/20/2024 [facility] Work Phone: Comment on above: Expected: 11/21/2023 , Expires: 11/20/2024 Start: 11-21-2023 End: 11-21-2023 Patient encounter procedure 11/21/2023 8:00 AM EDT Office Visit [facility] [address] [place] [id number] Ezio Anderson, ACCOUNT RESOLUTION SPECIALIST-PRESSFITTER [address] [place] [address] [facility] Start: 09-04-2023 End: 09-04-2023 Patient encounter procedure 09/04/2023 8:45 AM EDT Office Visit [facility] [address] [place] [id number] Krunal Ackerman MD [address] [place], [place] [id number] Harjeet Thomas MD [address] [facility] [address] [place] [address] [facility] Start: 01-26-2023 Influenza vaccination Influenza Vacc ine [facility] Start: 02-03-2020 Administration of varicella zoster vaccine Zoster (Shingles) Vaccine (1 of 2) [facility] Start: 1989 DTaP,Tdap and Td Vaccines (1 - Tdap) DTaP,Tdap and Td Vaccines (1 - Tdap) [facility] Start: 02-03-1988 Diabetic foot examination Diabetic Foot Exam [facility] Start: 1970 Glaucoma screening Diabetic Op hthalmology Exam [facility] Start: 1970 Urine screening for protein Urine Microalbumin [facility] End: 09-08-2025 Basic metabolic 2000 panel - Serum or Plasma Basic Metabolic Panel Lab Routine Atherosclerosis of [place] coronary artery of [place] heart without angina pectoris 1 Occurrences starting 09/08/2024 until 09/08/2025 [facility] Work Phone: Comment on above: 1 Occurrences starti ng 09/08/2024 until 09/08/2025 End: 05-27-2025 CBC W Auto Differential panel - Blood CBC auto differential Lab Routine Blood tests for routine general physical examination 1 Occurrences starting 05/27/2024 until 05/27/2025 [facility] Comment on above: 1 Occurrences starti ng 05/27/2024 until 05/27/2025 End: 05-27-2025 Comprehensive metabolic 2000 panel - Serum or Plasma Comprehensive metabolic panel Lab Routine Blood tests for routine general physical examination 1 Occurrences starting 05/27/2024 until 05/27/2025 [facility] Work Phone: Comment on above: 1 Occurrences starti ng 05/27/2024 until 05/27/2025 End: 05-27-2025 Hemoglobin A1c/Hemoglobin.total in Blood Hemoglobin A1c Lab Routine Blood tests for routine general physical examination 1 Occurrences starting 05/27/2024 until 05/27/2025 [facility] Comment on above: 1 Occurrences starti ng 05/27/2024 until 05/27/2025 End: 10-10-2025 Hemoglobin A1c/Hemoglobin.total in Blood Hemoglobin A1c Lab Routine Type 2 diabetes mellitus with hyperglycemia, without long-term current use of insulin ([facility]) 1 Occurrences starting 10/09/2024 until 10/10/2025 [facility] Work Phone: Comment on above: 1 Occurrences starti ng 10/09/2024 until 10/10/2025 End: 05-27-2025 Lipid 1996 panel - Serum or Plasma Lipid profile Lab Routine Blood tests for routine general physical examination 1 Occurrences starting 05/27/2024 until 05/27/2025 [facility] Comment on above: 1 Occurrences starti ng 05/27/2024 until 05/27/2025 End: 05-27-2025 Microalbumin - Albumin: Creatinine Urine Ratio Microalbumin - Albumin: Creatinine Urine Ratio Lab Routine Type 2 diabetes mellitus with hyperglycemia, without long-term current use of insulin ([facility]) 1 Occurrences starting 05/27/2024 until 05/27/2025 [facility]: 1 Occurrences starti ng 05/27/2024 until 05/27/2025 End: 05-27-2025 Thyrotropin [Units/volume] in Serum or Plasma TSH Lab Routine Blood tests for routine general physical examination 1 Occurrences starting 05/27/2024 until 05/27/2025 [facility] Comment on above: 1 Occurrences starti ng 05/27/2024 until 05/27/2025 Payers Date Payer Category Payer Managed Care Other (unspecified) [id number] PLAN [id number] 2013 Private Health Insurance [id number] 1970 Unknown [id number] 1970 Unknown [id number] 1970 Unknown [id number] 1970 Unknown [id number] 1970 Unknown [id number] 1959 Private Health Insurance [id number] Social History Date Type Detail Facility Start: 02-27-2022 End: 11-21-2023 Tobacco smoking status NHIS Ex-smoker [facility] Start: 10-28-1989 End: 10-28-2021 History of tobacco use Current smoker [facility] Start: 10-28-1989 End: 10-28-2021 History of tobacco use Cigarette Smoker [facility] Start: 11-21-2023 End: 10-09-2024 Cigarettes smoked current (pack per day) - Reported 1 [facility] Start: 02-27-2022 End: 11-21-2023 Tobacco use and exposure Smokeless tobacco non-user [facility] Start: 05-27-2024 End: 10-09-2024 Alcoholic beverage intake Ex-drinker (finding) [facility] Start: 05-27-2024 End: 10-09-2024 Tobacco use panel [facility] Adolescent depressio n screening assessment 0 [facility] Start: 1970 Sex assigned at Female [facility] Start: 10-10-2021 Sex Female (finding) [facility] Start: 08-18-2022 Gender identity Identifies as female gender (finding) [facility] Start: 08-18-2022 Sexual orientation Heterosexual (fin ding) [facility] Medical Equipment Procedure Code Equipment Code Equipment Origin al Text Equipment Identifier Dates System Cor Stnt [id number] 145cm Xience [employer] Pebax - [id number] [facility] Start: 10-11-2021 Inject 1 Lancet into the skin in the morning and at bedtime. [id number] Start: 01-30-2024 End: 10-09-2024 USE 1 STRIP BY O THER ROUTE IN THE MORNING AND AT BEDTIME. [id number] Start: 10-15-2023 Inject 1 Lancet into the skin in the morning and at bedtime. [id number] Start: 04-03-2023 End: 01-30-2024 1 strip by other route in the morning and at bedtime. [id number] Start: 04-03-2023 End: 10-15-2023 Inject 1 Lancet into the skin in the morning and at bedtime. [id number] Start: 10-09-2024 Clinical Notes 07-16-2023 to 10-09-2024 HELIO Balbuena - 10/09/2024 1:00 PM Louise Dowell MD - 09/08/2024 12:45 PM HELIO Ortiz - 05/27/2024 7:40 AM EST Note Date & Type Note Facility 10-09-2024 History of Present illness Narrative Images from the original note were not included. [address] [facility] [address] SUBJECTIVE: Patient ID: Michaela Santamaria is a 54 y.o. female. Chief Complaint Patient presents with Diabetes She is accompanied by her today. States she was recently seen by cardiology. Her blood pressure was elevated. 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 138/82. Better controlled. States she occasionally has episodes of low blood sugars. Has not occurred since she stopped metoprolol. Diabetes She has type 2 diabetes mellitus. Her disease course has been stable. There are no hypoglycemic associated symptoms. There are no diabetic associated symptoms. Pertinent negatives for diabetes include no chest pain. There are no hypoglycemic complications. Symptoms are stable. There are no diabetic complications. Risk factors for coronary artery disease include diabetes mellitus, dyslipidemia, family history, obesity and post-menopausal. Current diabetic treatment includes diet. She is compliant with treatment most of the time. She is following a diabetic and generally healthy diet. She participates in exercise intermittently. Home blood sugar record trend: Does not check blood sugar every day. An MICHELLE inhibitor/angiotensin II receptor daniel is being taken. Hypertension This is a chronic problem. The current episode started more than 1 year ago. The problem is controlled. Pertinent negatives include no chest pain, palpitations or shortness of breath. There are no associated agents to hypertension. Past treatments include calcium channel blockers. The current treatment provides significant improvement. There are no compliance problems. Hyperlipidemia This is a chronic problem. The current episode started more than 1 year ago. Recent lipid tests were reviewed and are variable. Exacerbating diseases include diabetes and obesity. There are no known factors aggravating her hyperlipidemia. Pertinent negatives include no chest pain or shortness of breath. Current antihyperlipidemic treatment includes statins. The current treatment provides significant improvement of lipids. There are no compliance problems. Risk factors for coronary artery disease include diabetes mellitus, dyslipidemia, family history, hypertension and obesity. The following portions of the patient's history were reviewed and updated as appropriate: allergies, current medications, past family history, past medical history, past social history, past surgical history and problem list. Past Surgical History: Procedure Laterality Date Cardiac catheterization N/A 10/11/2021 Performed by Tamika López MD at [facility] COLONOSCOPY N/A 08/04/2022 Performed by Felipe Escoto DO at [facility] COLONOSCOPY DIAGNOSTIC / SCREENING N/A 08/24/2023 Performed by Felipe Escoto DO at [facility] drug eluting stent right coronary artery N/A 10/11/2021 Performed by Tamika López MD at [facility] EYELID LACERATION REPAIR Left as a child, tree branch in eye. HYSTERECTOMY Intravascular ultrasound coronary N/A 10/11/2021 Performed by Tamika López MD at [facility] OOPHORECTOMY only one removed WISDOM TOOTH EXTRACTION Past Medical History: Diagnosis Date Eye glasses 06/11/2022 Hyperlipidemia Hypertension Myocardial infarction ([facility]) Stroke ([facility]) Visual impairment There is no immunization history on file for this patient. REVIEW OF SYSTEMS: Review of Systems Constitutional: Negative for chills and fever. HENT: Negative. Eyes: Negative for visual disturbance. Respiratory: Negative for chest tightness and shortness of breath. Cardiovascular: Negative for chest pain and palpitations. Gastrointestinal: Negative. Endocrine: Negative. Genitourinary: Negative for menstrual problem and pelvic pain. Musculoskeletal: Negative. Skin: Negative. Allergic/Immunologic: Negative. Neurological: Negative for syncope and facial asymmetry. Hematological: Does not bruise/bleed easily. Psychiatric/Behavioral: Negative. PHYSICAL EXAMINATION: Vitals: 05/15/25 1308 BP: 138/82 BP Site: Left Arm BP Postition: Sitting BP CUFF SIZE: M (9-13 inches) Pulse: 87 Resp: 18 Temp: 36.3 C (97.4 F) TempSrc: Tympanic SpO2: 96% Weight: 89.4 kg (197 lb) Height: 162.6 cm (5' 4.02 ) Patient noted to have elevated BMI and the following intervention(s) were applied: encouragement to exercise. Physical Exam Vitals and nursing note reviewed. Constitutional: General: She is not in acute distress. Appearance: She is well-developed. She is not diaphoretic. HENT: Head: Normocephalic and atraumatic. Right Ear: Tympanic membrane and external ear normal. Left Ear: Tympanic membrane and external ear normal. Nose: Nose normal. Mouth/Throat: Mouth: Mucous membranes are moist. Pharynx: No oropharyngeal exudate. Eyes: General: Right eye: No discharge. Left eye: No discharge. Conjunctiva/sclera: Conjunctivae normal. Pupils: Pupils are equal, round, and reactive to light. Neck: Thyroid: No thyromegaly. Vascular: No JVD. Cardiovascular: Rate and Rhythm: Normal rate and regular rhythm. Heart sounds: Normal heart sounds. No murmur heard. No friction rub. No gallop. Pulmonary: Effort: Pulmonary effort is normal. Breath sounds: Normal breath sounds. Abdominal: General: Bowel sounds are normal. There is no distension. Palpations: Abdomen is soft. There is no mass. Tenderness: There is no abdominal tenderness. Musculoskeletal: General: Normal range of motion. Cervical back: Normal range of motion and neck supple. Lymphadenopathy: Cervical: No cervical adenopathy. Skin: General: Skin is warm and dry. Capillary Refill: Capillary refill takes less than 2 seconds. Neurological: Mental Status: She is alert and oriented to person, place, and time. Deep Tendon Reflexes: Reflexes are normal and symmetric. Psychiatric: Mood and Affect: Mood normal. Behavior: Behavior normal. Thought Content: Thought content normal. Judgment: Judgment normal. ASSESSMENT/PLAN: Michaela was seen today for diabetes. Diagnoses and all orders for this visit: Type 2 diabetes mellitus with hyperglycemia, without long-term current use of insulin ([facility]) - POCT Hemoglobin A1c - lancets misc; Inject 1 Lancet into the skin in the morning and at bedtime. - Hemoglobin A1c; Future Mixed hyperlipidemia - atorvastatin (LIPITOR) 80 mg tablet; Take 1 tablet (80 mg total) by mouth nightly. Encounter for screening mammogram for malignant neoplasm of breast - Mammography screening bilateral with CAD; Future Type 2 DM Last A1c was 6.2%. Patient insurance will not cover A1c done in office. She was provided a lab order today. She diet controlled diabetes. Has been modifying her diet and portion control Encourage routine home blood sugar monitoring, diet modification, and exercise regimen. Education regarding daily self skin foot checks Yearly eye exams Is taking statin and ARB HTN Controlled Reorder spironolactone and losartatn 50 mg oral daily Mixed hyperlipidemia Continue atorvastatin 80 mg oral daily History of NSTEMI Managed by cardiology Continue clopidogrel 75 mg oral daily Body mass index is 33.8 kg/m . Patient noted to have elevated BMI and the following intervention(s) were applied: Discussed current weight today. Consider healthy food choices, portion control. Avoid sugary beverages and high concentrated sweets. Routine exercise regimen encouraged. ALL QUESTIONS ANSWERED Total time spent was 25 minutes: Preparing to see the patient (e.g., review of tests) Obtaining and/or reviewing separately obtained history Performing a medically appropriate examination and/or evaluation Counseling and educating the patient/family/caregiver Ordering medications, tests, or procedures Follow-up: Annual physical HELIO Balbuena 10/09/24 1350 documented in this encounter [facility] 09-08-2024 History of Present illness Narrative Michaela Santamaria Date of visit: 09/08/2024 Date of : 1970 Age: 54 y.o. Patient Active Problem List Diagnosis NSTEMI (non-ST elevated myocardial infarction) ([facility]) Stroke ([facility]) Abnormal stool test Polyp of sigmoid colon Hyperlipidemia Hypertension Myocardial infarction ([facility]) Personal history of colonic polyps Polyp of transverse colon Nonspecific colitis Atherosclerosis of [place] coronary artery of [place] heart without angina pectoris Allergies Allergen Reactions Blue Dye Hives benadryl blue pill Current Outpatient Medications Medication Sig Dispense Refill alcohol swabs (ALCOHOL PREP PADS) pads, medicated Apply 1 Pad topically in the morning and at bedtime. 100 each 3 atorvastatin (LIPITOR) 80 mg tablet Take 1 tablet (80 mg total) by mouth nightly. 90 tablet 1 blood-glucose meter kit Monitor blood sugars twice daily 1 each 0 calcium carbonate (OS-ADRI) 600 mg elemental (1,500 mg) tablet Take 1 tablet (600 mg total) by mouth daily with breakfast. clopidogreL (PLAVIX) 75 mg tablet TAKE 1 TABLET (75 MG TOTAL) BY MOUTH IN THE MORNING 90 tablet 2 lancets misc Inject 1 Lancet into the skin in the morning and at bedtime. 200 each 1 metoprolol succinate XL (TOPROL XL) 25 mg 24 hr tablet TAKE 1 TABLET (25 MG TOTAL) BY MOUTH IN THE MORNING 90 tablet 1 ONETOUCH VERIO TEST STRIPS strip USE 1 STRIP BY OTHER ROUTE IN THE MORNING AND AT BEDTIME. 100 strip 6 spironolactone (ALDACTONE) 25 mg tablet TAKE 1 TABLET (25 MG TOTAL) BY MOUTH IN THE MORNING 90 tablet 1 tiZANidine (ZANAFLEX) 4 mg tablet Take 1 tablet (4 mg total) by mouth every 8 (eight) hours as needed for muscle spasms. 30 tablet 1 ibuprofen (MOTRIN) 800 mg tablet Take 1 tablet (800 mg total) by mouth every 8 (eight) hours as needed for pain. Take with food (Patient not taking: Reported on 09/08/2024) 40 tablet 1 No current facility-administered medications for this visit. Chief Complaint Patient presents with Follow-up EST PT F/U 1 YR L/S TLM, LABS PCP, SCHED W/PT, PT AWARE INS IS OON AND WANTS TO KEEP APPT History of Present Illness 54-year-old female here in follow-up, she is accompanied with her . She denies any chest pain shortness of breath, palpitation syncope claudication Her blood pressure is uncontrolled both here and on reported home logs LDL slightly above goal 74 Past Medical History: Diagnosis Date Eye glasses 06/11/2022 Hyperlipidemia Hypertension Myocardial infarction ([facility]) Stroke ([facility]) Visual impairment No data recorded No data recorded No data recorded Past Surgical History: Procedure Laterality Date Cardiac catheterization N/A 10/11/2021 Performed by Tamika López MD at [facility] COLONOSCOPY N/A 08/04/2022 Performed by Felipe Escoto DO at [facility] COLONOSCOPY DIAGNOSTIC / SCREENING N/A 08/24/2023 Performed by Felipe Escoto DO at [facility] drug eluting stent right coronary artery N/A 10/11/2021 Performed by Tamika López MD at [facility] EYELID LACERATION REPAIR Left as a child, tree branch in eye. HYSTERECTOMY Intravascular ultrasound coronary N/A 10/11/2021 Performed by Tamika López MD at [facility]S OOPHORECTOMY only one removed WISDOM TOOTH EXTRACTION Family History Problem Relation Age of Onset Hypertension Mother Diabetes Mother Hyperlipidemia Father Diabetes Father Hypertension Father Heart disease Father Diabetes Sister Hyperlipidemia Sister Hypertension Sister Autoimmune disease Sister Hyperlipidemia Sister Heart disease Sister Lung cancer Sister Migraines Son Breast cancer Maternal Aunt Social History Socioeconomic History Marital status: Spouse name: Not on file Number of children: Not on file Years of education: Not on file Highest education level: Not on file Occupational History Not on file Tobacco Use Smoking status: Former Current packs/day: 0.00 Average packs/day: 1 pack/day for 32.0 years (32.0 ttl pk-yrs) Types: Cigarettes Start date: 10/28/1989 Quit date: 10/28/2021 Years since quittin.8 Smokeless tobacco: Never Vaping Use Vaping status: Some Days Substances: THC, CBD Devices: Disposable, Pre-filled or refillable cartridge Substance and Sexual Activity Alcohol use: Not Currently Drug use: Not Currently Types: Marijuana Sexual activity: Yes Partners: Male Other Topics Concern Caffeine Use Yes Social History Narrative Not on file Social Drivers of Health Financial Resource Strain: Not on file Food Insecurity: No Food Insecurity (09/08/2024) Hunger Screening Food Insecurity - Worry: Never True Food Insecurity - Inability: Never True Transportation Needs: Not on file Physical Activity: Not on file Stress: Not on file Social Connections: Not on file Interpersonal Safety: Not on file Housing Instability: Not on file Review of Systems Review of Systems Constitutional: Negative. HENT: Negative. Eyes: Negative. Cardiovascular: Negative. Respiratory: Negative. Endocrine: Negative. Hematologic/Lymphatic: Bruises/bleeds easily. Skin: Negative. Musculoskeletal: Positive for back pain. Gastrointestinal: Negative. Genitourinary: Negative. Neurological: Negative. Psychiatric/Behavioral: The patient is nervous/anxious. Allergic/Immunologic: Positive for environmental allergies. Vascular: Negative. CARDIOVASCULAR: Please review HPI. Physical Examination General appearance: Alert, oriented and cooperative. In no acute distress. Skin: Warm and dry to touch. Head: Normocephalic, without obvious abnormality, atraumatic. Ears, Nose, Mouth, Throat: Throat clear without erythema or exudate. Dentition intact. Eyes: Conjunctivae unremarkable, EOM intact. Neck: No JVD, No carotid bruit. Neck supple, trachea midline. Respiratory: Clear to auscultation bilaterally, no use of accessory muscles. Cardiovascular: RRR with normal S1 and S2 with no murmurs. Gastrointestinal: Soft, non-tender. Bowel sounds normal. Musculoskeletal: No peripheral edema. Neurologic: Oriented to time, person and place, affect appropriate. No focal/major motor defects noted. Psychiatric: Appropriate mood, memory and judgement. VITAL SIGNS: BP (!) 148/96 Pulse 81 Ht 162.6 cm (5' 4 ) Wt 90.3 kg (199 lb) SpO2 97% BMI 34.16 kg/m No orders of the defined types were placed in this encounter. There are no discontinued medications. IMPRESSIONS/PLAN 1. Atherosclerosis of [place] coronary artery of [place] heart without angina pectoris - POCT EKG Coronary artery disease s/p PCI/LOLITA mid-distal RCA in the setting inferior STEMI 10/11/2021, symptom at a time was b/l shoulder heaviness and fatigue Chronic heart failure preserved ejection fraction (elevated LVEDP at time of catheterization) LVEF 60-65% Hypertension, essential Hyperlipidemia LDL 74 above goal Diabetes type 2 not on insulin controlled with A1c 6.2% Former Tobacco abuse quit 2021 CVA symptoms 2021 status post tPA during that admission when she was found to have STEMI, No CVA by imaging on MRI (suspect was due to accelerated hypertension her blood pressure was over 200 mm Hg at the time) Family history of early CAD -- discontinue Toprol she has no indication for it she is 2 years out from her ACS -- start losartan 50 mg daily and up titrate the dose for goal blood pressure less than 130/80 mm Hg check basic metabolic panel in 1-2 weeks A lot of time spent discussing above diagnosis and lifestyle modifications - MARIIA DOWELL MD 09/08/24 2:25 PM TODAYS ORDERS Orders Placed This Encounter Procedures POCT EKG FOLLOW UP No follow-ups on file. PCP: Ezio Anderson APRN-[facility] Referring Physician: Ezio Anderson APRN[facility] [address] [place] [address] documented in this encounter [facility] 05-27-2024 History of Present illness Narrative Images from the original note were not included. [address] [place] [address] SUBJECTIVE: Patient ID: Michaela Santamaria is a 54 y.o. female. Chief Complaint Patient presents with Annual Exam Presents for annual physical She is . Quit smoking 2021. Monitored by cardiology yearly for history of MT. She is diet controlled Type 2 DM. Last A1c was 6%. The following portions of the patient's history were reviewed and updated as appropriate: allergies, current medications, past family history, past medical history, past social history, past surgical history and problem list. Past Surgical History: Procedure Laterality Date Cardiac catheterization N/A 10/11/2021 Performed by Tamika López MD at [facility] COLONOSCOPY N/A 08/04/2022 Performed by Felipe Escoto DO at [facility] COLONOSCOPY DIAGNOSTIC / SCREENING N/A 08/24/2023 Performed by Felipe Escoto DO at [facility] drug eluting stent right coronary artery N/A 10/11/2021 Performed by Tamika López MD at [facility] EYELID LACERATION REPAIR Left as a child, tree branch in eye. HYSTERECTOMY Intravascular ultrasound coronary N/A 10/11/2021 Performed by Tamika López MD at [facility] OOPHORECTOMY only one removed WISDOM TOOTH EXTRACTION Past Medical History: Diagnosis Date Eye glasses 06/11/2022 Hyperlipidemia Hypertension Myocardial infarction ([facility]) Stroke ([facility]) Visual impairment There is no immunization history on file for this patient. REVIEW OF SYSTEMS: Review of Systems Constitutional: Negative for chills and fever. HENT: Negative. Eyes: Negative for visual disturbance. Respiratory: Negative for chest tightness and shortness of breath. Cardiovascular: Negative for chest pain and palpitations. Gastrointestinal: Negative. Endocrine: Negative. Genitourinary: Negative for menstrual problem and pelvic pain. Musculoskeletal: Negative. Skin: Negative. Allergic/Immunologic: Negative. Neurological: Negative for syncope and facial asymmetry. Hematological: Does not bruise/bleed easily. Psychiatric/Behavioral: Negative. PHYSICAL EXAMINATION: Vitals: 05/27/24 0729 BP: 120/80 BP Site: Left Arm BP Postition: Sitting Pulse: 71 Temp: 36.3 C (97.3 F) TempSrc: Tympanic SpO2: 96% Weight: 91.8 kg (202 lb 6.4 oz) Height: 162.6 cm (5' 4 ) Patient noted to have elevated BMI and the following intervention(s) were applied: encouragement to exercise. Physical Exam Vitals and nursing note reviewed. Constitutional: General: She is not in acute distress. Appearance: She is well-developed. She is not diaphoretic. HENT: Head: Normocephalic and atraumatic. Right Ear: Tympanic membrane and external ear normal. Left Ear: Tympanic membrane and external ear normal. Nose: Nose normal. Mouth/Throat: Mouth: Mucous membranes are moist. Pharynx: No oropharyngeal exudate. Eyes: General: Right eye: No discharge. Left eye: No discharge. Conjunctiva/sclera: Conjunctivae normal. Pupils: Pupils are equal, round, and reactive to light. Neck: Thyroid: No thyromegaly. Vascular: No JVD. Cardiovascular: Rate and Rhythm: Normal rate and regular rhythm. Heart sounds: Normal heart sounds. No murmur heard. No friction rub. No gallop. Pulmonary: Effort: Pulmonary effort is normal. Breath sounds: Normal breath sounds. Abdominal: General: Bowel sounds are normal. There is no distension. Palpations: Abdomen is soft. There is no mass. Tenderness: There is no abdominal tenderness. Musculoskeletal: General: Normal range of motion. Cervical back: Normal range of motion and neck supple. Lymphadenopathy: Cervical: No cervical adenopathy. Skin: General: Skin is warm and dry. Capillary Refill: Capillary refill takes less than 2 seconds. Neurological: Mental Status: She is alert and oriented to person, place, and time. Deep Tendon Reflexes: Reflexes are normal and symmetric. Psychiatric: Mood and Affect: Mood normal. Behavior: Behavior normal. Thought Content: Thought content normal. Judgment: Judgment normal. ASSESSMENT/PLAN: Michaela was seen today for annual exam. Diagnoses and all orders for this visit: Annual physical exam Type 2 diabetes mellitus with hyperglycemia, without long-term current use of insulin ([facility]) - Cancel: POCT Hemoglobin A1c - Microalbumin - Albumin: Creatinine Urine Ratio; Future Blood tests for routine general physical examination - Comprehensive metabolic panel; Future - CBC auto differential; Future - Lipid profile; Future - Hemoglobin A1c; Future - TSH; Future Mixed hyperlipidemia - atorvastatin (LIPITOR) 80 mg tablet; Take 1 tablet (80 mg total) by mouth nightly. HTN (hypertension), benign - clopidogreL (PLAVIX) 75 mg tablet; Take 1 tablet (75 mg total) by mouth in the morning. - metoprolol succinate XL (TOPROL XL) 25 mg 24 hr tablet; Take 1 tablet (25 mg total) by mouth in the morning. - spironolactone (ALDACTONE) 25 mg tablet; Take 1 tablet (25 mg total) by mouth in the morning. Back muscle spasm - tiZANidine (ZANAFLEX) 4 mg tablet; Take 1 tablet (4 mg total) by mouth every 8 (eight) hours as needed for muscle spasms. Encounter for screening mammogram for malignant neoplasm of breast - Mammography screening bilateral with CAD; Future Body mass index is 34.74 kg/m . Patient noted to have elevated BMI and the following intervention(s) were applied: Discussed current weight today. Consider healthy food choices, portion control. Avoid sugary beverages and high concentrated sweets. Routine exercise regimen encouraged. Depression: Not at risk (05/27/2024) PHQ-2 PHQ-2 Score: 0 Colonoscopy screening discussed today. Risk and benefits of procedure explained. Patient completed 2023. Recommendation is to repeat in 5 years. Mammogram ordered Reorder routine medication Wellness labs ordered. Reminder to complete yearly eye exam or as directed by eye provider. ALL QUESTIONS ANSWERED Total time spent was 30 minutes: Preparing to see the patient (e.g., review of tests) Obtaining and/or reviewing separately obtained history Performing a medically appropriate examination and/or evaluation Counseling and educating the patient/family/caregiver Ordering medications, tests, or procedures Follow-up: May DM HTN HELIO Balbuena 05/27/24 0808 documented in this encounter [facility] 11-21-2023 History of Present illness Narrative Images from the original note were not included. [address] [place] [address] SUBJECTIVE: Patient ID: Michaela Santamaria is a 53 y.o. female. Chief Complaint Patient presents with Diabetes Hypertension Patient presents for DM follow up Is doing diet control. Blood sugars have been below 135. She is doing diet modification, has lost 5 more pounds since last visit. Diabetes She presents for her follow-up diabetic visit. She has type 2 diabetes mellitus. Her disease course has been improving. There are no hypoglycemic associated symptoms. There are no diabetic associated symptoms. Pertinent negatives for diabetes include no chest pain. There are no hypoglycemic complications. Symptoms are stable. There are no diabetic complications. Risk factors for coronary artery disease include diabetes mellitus, dyslipidemia, family history, obesity and post-menopausal. Current diabetic treatment includes oral agent (monotherapy). She is compliant with treatment all of the time. She is following a diabetic diet. Meal planning includes avoidance of concentrated sweets (PORTION CONTROL). She participates in exercise intermittently. Her home blood glucose trend is fluctuating minimally. Her breakfast blood glucose range is generally 90-110 mg/dl. Eye exam is current. Hypertension This is a chronic problem. The current episode started more than 1 year ago. The problem is controlled. Pertinent negatives include no chest pain, palpitations or shortness of breath. There are no associated agents to hypertension. Risk factors for coronary artery disease include dyslipidemia, diabetes mellitus, family history, post-menopausal state and obesity. Past treatments include beta blockers. The current treatment provides significant improvement. There are no compliance problems. Hyperlipidemia This is a chronic problem. The current episode started more than 1 year ago. Recent lipid tests were reviewed and are variable. Exacerbating diseases include diabetes and obesity. There are no known factors aggravating her hyperlipidemia. Pertinent negatives include no chest pain or shortness of breath. Current antihyperlipidemic treatment includes statins. The current treatment provides significant improvement of lipids. There are no compliance problems. The following portions of the patient's history were reviewed and updated as appropriate: allergies, current medications, past family history, past medical history, past social history, past surgical history and problem list. Past Surgical History: Procedure Laterality Date Cardiac catheterization N/A 10/11/2021 Performed by Tamika López MD at [facility] COLONOSCOPY N/A 08/04/2022 Performed by Felipe Escoto DO at [facility] COLONOSCOPY DIAGNOSTIC / SCREENING N/A 08/24/2023 Performed by Felipe Escoto DO at [facility] drug eluting stent right coronary artery N/A 10/11/2021 Performed by Tamika López MD at [facility] EYELID LACERATION REPAIR Left as a child, tree branch in eye. HYSTERECTOMY Intravascular ultrasound coronary N/A 10/11/2021 Performed by Tamika López MD at [facility] OOPHORECTOMY only one removed WISDOM TOOTH EXTRACTION Past Medical History: Diagnosis Date Eye glasses 06/11/2022 Hyperlipidemia Hypertension Myocardial infarction ([facility]) Stroke ([facility]) Visual impairment There is no immunization history on file for this patient. REVIEW OF SYSTEMS: Review of Systems Constitutional: Negative for chills and fever. HENT: Negative. Eyes: Negative for visual disturbance. Respiratory: Negative for chest tightness. Gastrointestinal: Negative. Endocrine: Negative. Genitourinary: Negative for menstrual problem and pelvic pain. Musculoskeletal: Negative. Skin: Negative. Allergic/Immunologic: Negative. Neurological: Negative for syncope and facial asymmetry. Hematological: Does not bruise/bleed easily. Psychiatric/Behavioral: Negative. PHYSICAL EXAMINATION: Vitals: 11/21/23 0755 BP: 130/82 BP Site: Left Arm BP Postition: Sitting Pulse: 71 Temp: 36.3 C (97.3 F) TempSrc: Tympanic SpO2: 96% Weight: 89.3 kg (196 lb 12.8 oz) Height: 162.6 cm (5' 4 ) Patient noted to have elevated BMI and the following intervention(s) were applied: encouragement to exercise. Physical Exam Vitals and nursing note reviewed. Constitutional: General: She is not in acute distress. Appearance: She is well-developed. She is not diaphoretic. HENT: Head: Normocephalic and atraumatic. Right Ear: Tympanic membrane and external ear normal. Left Ear: Tympanic membrane and external ear normal. Nose: Nose normal. Mouth/Throat: Mouth: Mucous membranes are moist. Pharynx: No oropharyngeal exudate. Eyes: General: Right eye: No discharge. Left eye: No discharge. Conjunctiva/sclera: Conjunctivae normal. Pupils: Pupils are equal, round, and reactive to light. Neck: Thyroid: No thyromegaly. Vascular: No JVD. Cardiovascular: Rate and Rhythm: Normal rate and regular rhythm. Heart sounds: Normal heart sounds. No murmur heard. No friction rub. No gallop. Pulmonary: Effort: Pulmonary effort is normal. Breath sounds: Normal breath sounds. Abdominal: General: Bowel sounds are normal. There is no distension. Palpations: Abdomen is soft. There is no mass. Tenderness: There is no abdominal tenderness. Musculoskeletal: General: Normal range of motion. Cervical back: Normal range of motion and neck supple. Lymphadenopathy: Cervical: No cervical adenopathy. Skin: General: Skin is warm and dry. Capillary Refill: Capillary refill takes less than 2 seconds. Neurological: Mental Status: She is alert and oriented to person, place, and time. Deep Tendon Reflexes: Reflexes are normal and symmetric. Psychiatric: Mood and Affect: Mood normal. Behavior: Behavior normal. Thought Content: Thought content normal. Judgment: Judgment normal. Diabetic foot exam: Visual exam was normal without lesions. Left: Pulses Dorsalis Pedis: present Vibratory sensation normal Filament test present Right: Pulses Dorsalis Pedis: present Vibratory sensation normal Filament test present ASSESSMENT/PLAN: Michaela was seen today for diabetes and hypertension. Diagnoses and all orders for this visit: Type 2 diabetes mellitus with hyperglycemia, without long-term current use of insulin ([facility]) - POCT Hemoglobin A1c HTN (hypertension), benign - clopidogreL (PLAVIX) 75 mg tablet; Take 1 tablet (75 mg total) by mouth in the morning. - metoprolol succinate XL (TOPROL XL) 25 mg 24 hr tablet; Take 1 tablet (25 mg total) by mouth in the morning. - spironolactone (ALDACTONE) 25 mg tablet; Take 1 tablet (25 mg total) by mouth in the morning. NSTEMI (non-ST elevated myocardial infarction) ([facility]) - clopidogreL (PLAVIX) 75 mg tablet; Take 1 tablet (75 mg total) by mouth in the morning. - metoprolol succinate XL (TOPROL XL) 25 mg 24 hr tablet; Take 1 tablet (25 mg total) by mouth in the morning. Encounter for screening mammogram for malignant neoplasm of breast - Mammography screening bilateral with CAD; Future Type 2 DM A1c 6.1% She diet controlled diabetes. Has been modifying her diet and portion control Encourage routine home blood sugar monitoring, diet modification, and exercise regimen. Education regarding daily self skin foot checks Yearly eye exams Is taking statin HTN Controlled Reorder spironolactone and metoprolol succinate Mixed hyperlipidemia Continue atorvastatin 80 mg oral daily History of NSTEMI Managed by cardiology Continue clopidogrel 75 mg oral daily Body mass index is 33.78 kg/m . Patient noted to have elevated BMI and the following intervention(s) were applied: Discussed current weight today. Consider healthy food choices, portion control. Avoid sugary beverages and high concentrated sweets. Routine exercise regimen encouraged. ALL QUESTIONS ANSWERED Total time spent was 30 minutes: Preparing to see the patient (e.g., review of tests) Obtaining and/or reviewing separately obtained history Performing a medically appropriate examination and/or evaluation Counseling and educating the patient/family/caregiver Ordering medications, tests, or procedures Follow-up: 6 months DM HELIO Balbuena 11/21/23 0843 documented in this encounter [facility] 08-31-2023 Miscellaneous Notes LMOM to pt that her [employer] Ins is OON for PPC. documented in this encounter [facility] 08-31-2023 Telephone encounter Note LMOM to pt that her [employer] Ins is OON for PPC. [facility] 08-27-2023 Miscellaneous Notes OV 03/08/23 documented in this encounter [facility] 08-27-2023 Telephone encounter Note OV 03/08/23 [facility] 08-23-2023 Nurse Note Preoperative Education Checklist- General Surgery date: 08/24/23 Surgery time: 1p Arrival time: 12p 1. Bring a photo ID and your insurance card with you the day of surgery. You will check in at the main lobby of the [facility]- registration desk is straight ahead as soon as you walk in. Tell them you are here for surgery. 2. If you have a Living Will/Durable Power of Lamination Spinner for Health Care that is not on file here, please bring a copy the day of surgery. 3. Please shower/bathe the night before surgery with the provided soap or wipes. Do not shower the morning of surgery- you will do use wipes when you arrive here at the hospital before getting into your surgical gown. Do not shave the area of your procedure for 2 days prior to your surgery. 4. NO powder, lotion, perfume/cologne, aftershave, make-up, deodorant, or hair products after you have bathed. 5. NO nail zimbabwean/acrylic on at least one finger. If you are having a hand, wrist or foot surgery then all nail zimbabwean and artificial/acrylic nails must be removed from that hand or foot. 6. Avoid ALL Aspirin and non-steroidal anti-inflammatory drugs and certain vitamins (Ibuprofen, Advil, Aleve, Excedrin, Meloxicam, Celebrex, fish/krill oil, etc.) for 7 days prior to surgery as instructed by your surgeon and/or your prescribing doctor. Tylenol IS ALLOWED. If you are on Ticlid, Xarelto, Eliquis, Pradaxa, Plavix or Coumadin, please check with your prescribing doctor for instructions for when to stop them. 7. If you use an inhaler, continue to use it routinely. 8. Nothing to eat or drink (not even water, gum, mints, or hard candy!) AFTER midnight prior to your surgery. 9. Take only medications that you are instructed to on the morning of surgery with a TINY SIP OF WATER. 10. Choose a responsible adult that will be able to drive you home when you are discharged from your hospital stay for your surgery and can stay with you in your home for 24 hours after your procedure. You must NOT drive any vehicle or operate any machinery for 24 hours after surgery. 11. When you dress for your appointment, please wear loose fitting clothing that is appropriate to accommodate your surgical area procedure. BRING WITH YOU ANY DEVICES YOU MAY NEED: DIANNA hose, ice machine, sling/swath, brace or special shoe, oversized zip-up or button up shirt, CPAP machine if staying overnight. 12. Do NOT wear jewelry, watches, or any piercings or metal for surgery- leave these valuables and money at home. 13. Do NOT wear contact lenses for surgery- glasses are okay if needed. 14. The anesthesiologist will talk with you the day of surgery and will ask you to sign a Consent Form. 15. Refrain from smoking or any type of tobacco use for at least 8 hours and marijuana for 24 hours prior to arrival for your surgery. 16. If a GREEN BLOOD band is given to you, please bring it with you for the day of surgery. 17. Notify your surgeon if you develop any illness before your surgery. 18. If you are staying overnight, please DO NOT BRING your home medications with you. 19. If you have any questions prior to surgery, please call the Preadmission Testing office at [phone], Mon.-Fri. 7 a.m.-3 p.m. Leave a voicemail if needed. Pre-Surgery Instructions: Medication Instructions alcohol swabs (ALCOHOL PREP PADS) pads, medicated Stop taking 0 days prior to procedure aspirin 81 mg Check with prescribing doctor for instructions atorvastatin (LIPITOR) 80 mg tablet Stop taking 0 days prior to procedure blood sugar diagnostic (glucose blood) strip Stop taking 0 days prior to procedure blood-glucose meter kit Stop taking 0 days prior to procedure clopidogreL (PLAVIX) 75 mg tablet Check with prescribing doctor for instructions ibuprofen (MOTRIN) 800 mg tablet Stop taking 1 week prior to procedure lancets misc Stop taking 0 days prior to procedure metoprolol succinate XL (TOPROL XL) 25 mg 24 hr tablet Take morning of procedure peg 3350-sod sulf,[id number] 178.7-7.3-0.5 gram recon soln Check with prescribing doctor for instructions spironolactone (ALDACTONE) 25 mg tablet Stop taking 0 days prior to procedure tiZANidine (ZANAFLEX) 4 mg tablet Stop taking 0 days prior to procedure [facility] 08-23-2023 Miscellaneous Notes Preoperative Education Checklist- General Surgery date: 08/24/23 Surgery time: 1p Arrival time: 12p 1. Bring a photo ID and your insurance card with you the day of surgery. You will check in at the main lobby of the [facility]- registration desk is straight ahead as soon as you walk in. Tell them you are here for surgery. 2. If you have a Living Will/Durable Power of Lamination Spinner for Health Care that is not on file here, please bring a copy the day of surgery. 3. Please shower/bathe the night before surgery with the provided soap or wipes. Do not shower the morning of surgery- you will do use wipes when you arrive here at the hospital before getting into your surgical gown. Do not shave the area of your procedure for 2 days prior to your surgery. 4. NO powder, lotion, perfume/cologne, aftershave, make-up, deodorant, or hair products after you have bathed. 5. NO nail zimbabwean/acrylic on at least one finger. If you are having a hand, wrist or foot surgery then all nail zimbabwean and artificial/acrylic nails must be removed from that hand or foot. 6. Avoid ALL Aspirin and non-steroidal anti-inflammatory drugs and certain vitamins (Ibuprofen, Advil, Aleve, Excedrin, Meloxicam, Celebrex, fish/krill oil, etc.) for 7 days prior to surgery as instructed by your surgeon and/or your prescribing doctor. Tylenol IS ALLOWED. If you are on Ticlid, Xarelto, Eliquis, Pradaxa, Plavix or Coumadin, please check with your prescribing doctor for instructions for when to stop them. 7. If you use an inhaler, continue to use it routinely. 8. Nothing to eat or drink (not even water, gum, mints, or hard candy!) AFTER midnight prior to your surgery. 9. Take only medications that you are instructed to on the morning of surgery with a TINY SIP OF WATER. 10. Choose a responsible adult that will be able to drive you home when you are discharged from your hospital stay for your surgery and can stay with you in your home for 24 hours after your procedure. You must NOT drive any vehicle or operate any machinery for 24 hours after surgery. 11. When you dress for your appointment, please wear loose fitting clothing that is appropriate to accommodate your surgical area procedure. BRING WITH YOU ANY DEVICES YOU MAY NEED: DIANNA hose, ice machine, sling/swath, brace or special shoe, oversized zip-up or button up shirt, CPAP machine if staying overnight. 12. Do NOT wear jewelry, watches, or any piercings or metal for surgery- leave these valuables and money at home. 13. Do NOT wear contact lenses for surgery- glasses are okay if needed. 14. The anesthesiologist will talk with you the day of surgery and will ask you to sign a Consent Form. 15. Refrain from smoking or any type of tobacco use for at least 8 hours and marijuana for 24 hours prior to arrival for your surgery. 16. If a GREEN BLOOD band is given to you, please bring it with you for the day of surgery. 17. Notify your surgeon if you develop any illness before your surgery. 18. If you are staying overnight, please DO NOT BRING your home medications with you. 19. If you have any questions prior to surgery, please call the [facility] office at [phone], Mon.-Fri. 7 a.m.-3 p.m. Leave a voicemail if needed. Pre-Surgery Instructions: Medication Instructions alcohol swabs (ALCOHOL PREP PADS) pads, medicated Stop taking 0 days prior to procedure aspirin 81 mg Check with prescribing doctor for instructions atorvastatin (LIPITOR) 80 mg tablet Stop taking 0 days prior to procedure blood sugar diagnostic (glucose blood) strip Stop taking 0 days prior to procedure blood-glucose meter kit Stop taking 0 days prior to procedure clopidogreL (PLAVIX) 75 mg tablet Check with prescribing doctor for instructions ibuprofen (MOTRIN) 800 mg tablet Stop taking 1 week prior to procedure lancets misc Stop taking 0 days prior to procedure metoprolol succinate XL (TOPROL XL) 25 mg 24 hr tablet Take morning of procedure peg 3350-sod sulf,[id number] 178.7-7.3-0.5 gram recon soln Check with prescribing doctor for instructions spironolactone (ALDACTONE) 25 mg tablet Stop taking 0 days prior to procedure tiZANidine (ZANAFLEX) 4 mg tablet Stop taking 0 days prior to procedure documented in this encounter [facility] Doctor kinetic 08-02-2023 History of Present illness Narrative Images from the original note were not included. [address] [place] [address] SUBJECTIVE: Patient ID: Michaela Santamaria is a 53 y.o. female. Chief Complaint Patient presents with low blood sugar issues Patient presents today with complaints of several episodes of symptomatic low blood sugars. States she becomes diaphoretic, shakes, and has dizziness. Each episode, blood sugars was in the 50s. Alleviating methods include eating. She has brought in blood sugar log for review. Diagnosed with Type 2 DM 7.1% February 2023. Was started on metformin 500 XR oral once daily She has been improving her dietary intake and portion control since diagnosis. Has lost 15 pounds. Blood Sugar Problem This is a new problem. The current episode started 1 to 4 weeks ago. The problem occurs intermittently. The problem has been waxing and waning. Associated symptoms include diaphoresis and weakness. Pertinent negatives include no chest pain, chills or fever. Nothing aggravates the symptoms. She has tried eating and drinking for the symptoms. The treatment provided significant relief. The following portions of the patient's history were reviewed and updated as appropriate: allergies, current medications, past family history, past medical history, past social history, past surgical history and problem list. Past Surgical History: Procedure Laterality Date Cardiac catheterization N/A 10/11/2021 Performed by Tamika López MD at [facility] COLONOSCOPY N/A 08/04/2022 Performed by Felipe Escoto DO at [facility] drug eluting stent right coronary artery N/A 10/11/2021 Performed by Tamika López MD at [facility] EYELID LACERATION REPAIR Left as a child, tree branch in eye. HYSTERECTOMY Intravascular ultrasound coronary N/A 10/11/2021 Performed by Tamika López MD at [facility] OOPHORECTOMY only one removed WISDOM TOOTH EXTRACTION Past Medical History: Diagnosis Date Eye glasses 06/11/2022 Hyperlipidemia Hypertension Myocardial infarction ([facility]) Stroke ([facility]) There is no immunization history on file for this patient. REVIEW OF SYSTEMS: Review of Systems Constitutional: Positive for diaphoresis. Negative for chills and fever. HENT: Negative. Eyes: Negative for visual disturbance. Respiratory: Negative for chest tightness and shortness of breath. Cardiovascular: Negative for chest pain and palpitations. Gastrointestinal: Negative. Endocrine: Negative. Genitourinary: Negative for menstrual problem and pelvic pain. Musculoskeletal: Negative. Skin: Negative. Allergic/Immunologic: Negative. Neurological: Positive for weakness. Negative for syncope and facial asymmetry. Hematological: Does not bruise/bleed easily. Psychiatric/Behavioral: Negative. PHYSICAL EXAMINATION: Vitals: 08/02/23 1519 BP: 140/68 BP Site: Left Arm BP Postition: Sitting Pulse: 59 Temp: 36.4 C (97.5 F) TempSrc: Oral SpO2: 98% Weight: 90.9 kg (200 lb 4.8 oz) Height: 160 cm (5' 3 ) Patient noted to have elevated BMI and the following intervention(s) were applied: encouragement to exercise. Physical Exam Vitals and nursing note reviewed. Constitutional: General: She is not in acute distress. Appearance: She is well-developed. She is not diaphoretic. HENT: Head: Normocephalic and atraumatic. Right Ear: Tympanic membrane and external ear normal. Left Ear: Tympanic membrane and external ear normal. Nose: Nose normal. Mouth/Throat: Mouth: Mucous membranes are moist. Pharynx: No oropharyngeal exudate. Eyes: General: Right eye: No discharge. Left eye: No discharge. Conjunctiva/sclera: Conjunctivae normal. Pupils: Pupils are equal, round, and reactive to light. Neck: Thyroid: No thyromegaly. Vascular: No JVD. Cardiovascular: Rate and Rhythm: Normal rate and regular rhythm. Heart sounds: Normal heart sounds. No murmur heard. No friction rub. No gallop. Pulmonary: Effort: Pulmonary effort is normal. Breath sounds: Normal breath sounds. Abdominal: General: Bowel sounds are normal. There is no distension. Palpations: Abdomen is soft. There is no mass. Tenderness: There is no abdominal tenderness. Musculoskeletal: General: Normal range of motion. Cervical back: Normal range of motion and neck supple. Lymphadenopathy: Cervical: No cervical adenopathy. Skin: General: Skin is warm and dry. Capillary Refill: Capillary refill takes less than 2 seconds. Neurological: Mental Status: She is alert and oriented to person, place, and time. Deep Tendon Reflexes: Reflexes are normal and symmetric. Psychiatric: Mood and Affect: Mood normal. Behavior: Behavior normal. Thought Content: Thought content normal. Judgment: Judgment normal. ASSESSMENT/PLAN: Michaela was seen today for low blood sugar issues. Diagnoses and all orders for this visit: Hypoglycemia Diagnosed with Type 2 DM 7.1% February 2023. Was started on metformin 500 XR oral once daily She has been improving her dietary intake and portion control since diagnosis. Has lost 15 pounds. Reviewed logs. Average blood sugar is around 100. Two episodes of low blood sugar, in the 50's Stop metformin Continue diet control and weight lost. A1c last month was 5.9% ALL QUESTIONS ANSWERED Total time spent was 25 minutes: Preparing to see the patient (e.g., review of tests) Obtaining and/or reviewing separately obtained history Performing a medically appropriate examination and/or evaluation Counseling and educating the patient/family/caregiver Ordering medications, tests, or procedures Follow-up: Next scheduled Sooner if needed HELIO Balbuena 08/02/23 7932 documented in this encounter [facility] 07-16-2023 History of Present illness Narrative Images from the original note were not included. [address] [address] SUBJECTIVE: Patient ID: Michaela Santamaria is a 53 y.o. female. Chief Complaint Patient presents with Diabetes Presents for follow up Relates she has improved her dietary intake and portion control. Was diagnosed with new onset DM, with A1c of 7.1. Has lost approximately 13 pounds since her dietary modification. Has brought in daily log blood sugars. Average is around 100 Diabetes She presents for her follow-up diabetic visit. She has type 2 diabetes mellitus. Her disease course has been improving. There are no hypoglycemic associated symptoms. There are no diabetic associated symptoms. Pertinent negatives for diabetes include no chest pain. There are no hypoglycemic complications. Symptoms are stable. There are no diabetic complications. Risk factors for coronary artery disease include diabetes mellitus, dyslipidemia, family history, obesity and post-menopausal. Current diabetic treatment includes oral agent (monotherapy). She is compliant with treatment all of the time. She is following a diabetic diet. Meal planning includes avoidance of concentrated sweets (PORTION CONTROL). She participates in exercise intermittently. Her home blood glucose trend is fluctuating minimally. Her breakfast blood glucose range is generally 90-110 mg/dl. Eye exam is current. Hypertension This is a chronic problem. The current episode started more than 1 year ago. The problem is controlled. Pertinent negatives include no chest pain, palpitations or shortness of breath. There are no associated agents to hypertension. Risk factors for coronary artery disease include dyslipidemia, diabetes mellitus, family history, post-menopausal state and obesity. Past treatments include beta blockers. The current treatment provides significant improvement. There are no compliance problems. Hyperlipidemia This is a chronic problem. The current episode started more than 1 year ago. Recent lipid tests were reviewed and are variable. Exacerbating diseases include diabetes and obesity. There are no known factors aggravating her hyperlipidemia. Pertinent negatives include no chest pain or shortness of breath. Current antihyperlipidemic treatment includes statins. The current treatment provides significant improvement of lipids. There are no compliance problems. The following portions of the patient's history were reviewed and updated as appropriate: allergies, current medications, past family history, past medical history, past social history, past surgical history and problem list. Past Surgical History: Procedure Laterality Date Cardiac catheterization N/A 10/11/2021 Performed by Tamika López MD at [facility] COLONOSCOPY N/A 08/04/2022 Performed by Felipe Escoto DO at [facility] drug eluting stent right coronary artery N/A 10/11/2021 Performed by Tamika López MD at [facility] EYELID LACERATION REPAIR Left as a child, tree branch in eye. HYSTERECTOMY Intravascular ultrasound coronary N/A 10/11/2021 Performed by Tamika López MD at [facility] OOPHORECTOMY only one removed WISDOM TOOTH EXTRACTION Past Medical History: Diagnosis Date Hyperlipidemia Hypertension Myocardial infarction ([facility]) Stroke ([facility]) There is no immunization history on file for this patient. REVIEW OF SYSTEMS: Review of Systems Constitutional: Negative for chills and fever. HENT: Negative. Eyes: Negative for visual disturbance. Respiratory: Negative for chest tightness and shortness of breath. Cardiovascular: Negative for chest pain and palpitations. Gastrointestinal: Negative. Endocrine: Negative. Genitourinary: Negative for menstrual problem and pelvic pain. Musculoskeletal: Negative. Skin: Negative. Allergic/Immunologic: Negative. Neurological: Negative for syncope and facial asymmetry. Hematological: Does not bruise/bleed easily. Psychiatric/Behavioral: Negative. PHYSICAL EXAMINATION: Vitals: 07/16/23 0757 BP: 130/80 BP Site: Left Arm BP Postition: Sitting Pulse: 70 Temp: 36.6 C (97.8 F) TempSrc: Oral SpO2: 98% Weight: 89.7 kg (197 lb 11.2 oz) Height: 160 cm (5' 3 ) Patient noted to have elevated BMI and the following intervention(s) were applied: encouragement to exercise. Physical Exam Vitals and nursing note reviewed. Constitutional: General: She is not in acute distress. Appearance: She is well-developed. She is not diaphoretic. HENT: Head: Normocephalic and atraumatic. Right Ear: Tympanic membrane and external ear normal. Left Ear: Tympanic membrane and external ear normal. Nose: Nose normal. Mouth/Throat: Mouth: Mucous membranes are moist. Pharynx: No oropharyngeal exudate. Eyes: General: Right eye: No discharge. Left eye: No discharge. Conjunctiva/sclera: Conjunctivae normal. Pupils: Pupils are equal, round, and reactive to light. Neck: Thyroid: No thyromegaly. Vascular: No JVD. Cardiovascular: Rate and Rhythm: Normal rate and regular rhythm. Heart sounds: Normal heart sounds. No murmur heard. No friction rub. No gallop. Pulmonary: Effort: Pulmonary effort is normal. Breath sounds: Normal breath sounds. Abdominal: General: Bowel sounds are normal. There is no distension. Palpations: Abdomen is soft. There is no mass. Tenderness: There is no abdominal tenderness. Musculoskeletal: General: Normal range of motion. Cervical back: Normal range of motion and neck supple. Lymphadenopathy: Cervical: No cervical adenopathy. Skin: General: Skin is warm and dry. Capillary Refill: Capillary refill takes less than 2 seconds. Neurological: Mental Status: She is alert and oriented to person, place, and time. Deep Tendon Reflexes: Reflexes are normal and symmetric. Psychiatric: Mood and Affect: Mood normal. Behavior: Behavior normal. Thought Content: Thought content normal. Judgment: Judgment normal. ASSESSMENT/PLAN: Michaela was seen today for diabetes. Diagnoses and all orders for this visit: Type 2 diabetes mellitus with hyperglycemia, without long-term current use of insulin ([facility]) - POCT Hemoglobin A1c - metFORMIN XR (GLUCOPHAGE XR) 500 mg 24 hr tablet; Take 1 tablet (500 mg total) by mouth daily with breakfast. HTN (hypertension), benign - metoprolol succinate XL (TOPROL XL) 25 mg 24 hr tablet; Take 1 tablet (25 mg total) by mouth in the morning. - spironolactone (ALDACTONE) 25 mg tablet; Take 1 tablet (25 mg total) by mouth in the morning. - clopidogreL (PLAVIX) 75 mg tablet; Take 1 tablet (75 mg total) by mouth in the morning. NSTEMI (non-ST elevated myocardial infarction) ([facility]) - metoprolol succinate XL (TOPROL XL) 25 mg 24 hr tablet; Take 1 tablet (25 mg total) by mouth in the morning. - clopidogreL (PLAVIX) 75 mg tablet; Take 1 tablet (75 mg total) by mouth in the morning. Mixed hyperlipidemia - atorvastatin (LIPITOR) 80 mg tablet; Take 1 tablet (80 mg total) by mouth nightly. Type 2 DM A1c 5.9%. Was previously 7.1% Continue metformin XR 500 mg oral daily Encourage routine home blood sugar monitoring, diet modification, and exercise regimen. Education regarding daily self skin foot checks Yearly eye exams Is taking statin Metoprolol succinate for blood pressure HTN Controlled Reorder spironolactone and metoprolol succinate Mixed hyperlipidemia Continue atorvastatin 80 mg oral daily History of NSTEMI Managed by cardiology Continue clopidogrel 75 mg oral daily Body mass index is 35.02 kg/m . Patient noted to have elevated BMI and the following intervention(s) were applied: Discussed current weight today. Consider healthy food choices, portion control. Avoid sugary beverages and high concentrated sweets. Routine exercise regimen encouraged. ALL QUESTIONS ANSWERED Total time spent was 30 minutes: Preparing to see the patient (e.g., review of tests) Obtaining and/or reviewing separately obtained history Performing a medically appropriate examination and/or evaluation Counseling and educating the patient/family/caregiver Ordering medications, tests, or procedures Follow-up: 4 months HELIO Balbuena 07/16/23 1100 documented in this encounter [facility] Evaluation note Diagnosis Annual physical exam- Primary Routine general medical examination at a health care facility Type 2 diabetes mellitus with hyperglycemia, without long-term current use of insulin ([facility]) Blood tests for routine general physical examination Laboratory examination ordered as part of a routine general medical examination Mixed hyperlipidemia HTN (hypertension), benign Essential hypertension, benign Back muscle spasm Other symptoms referable to back Encounter for screening mammogram for malignant neoplasm of breast documented in this encounter [facility]* Diagnosis HTN (hypertension), benign Essential hypertension, benign documented in this encounter [facility]* Diagnosis Type 2 diabetes mellitus with hyperglycemia, without long-term current use of insulin ([facility]) [facility] Type 2 diabetes mellitus with hyperglycemia, without long-term current use of insulin ([facility])- Primary HTN (hypertension), benign Essential hypertension, benign NSTEMI (non-ST elevated myocardial infarction) ([facility]) Acute myocardial infarction, subendocardial infarction, episode of care unspecified Encounter for screening mammogram for malignant neoplasm of breast Comprehensive diabetic foot examination, type 1 DM, encounter for ([facility]) [facility] Diagnosis Type 2 diabetes mellitus with hyperglycemia, without long-term current use of insulin ([facility])- Primary HTN (hypertension), benign Essential hypertension, benign NSTEMI (non-ST elevated myocardial infarction) ([facility]) Acute myocardial infarction, subendocardial infarction, episode of care unspecified Mixed hyperlipidemia [facility] Diagnosis Hypoglycemia- Primary Hypoglycemia, unspecified documented in this encounter [facility]* Diagnosis Mixed hyperlipidemia [facility] Diagnosis Atherosclerosis of [place] coronary artery of [place] heart without angina pectoris- Primary Primary hypertension Unspecified essential hypertension [facility] Diagnosis Type 2 diabetes mellitus with hyperglycemia, without long-term current use of insulin ([facility])- Primary Mixed hyperlipidemia Encounter for screening mammogram for malignant neoplasm of breast documented in this encounter [facility] SystemInstructions* Attachments The following attachments cannot be sent through Care Everywhere. * Yearly Physical for Adults (Micronesian) [facility] SystemInstructionsNot on file [facility] SystemInstructionsNot on file documented in this [facility]Louis [facility] SystemInst[facility]* Attachments The following attachments cannot be sent through Care Everywhere. * Breast cancer screening ([place]ron[place]) * Diabetes and diet ([place]ronesian) documented in this [facility] SystemInstructions* Attachments The following attachments cannot be sent through Care Everywhere. * Diabetes and diet ([place]ron[place]) [facility]* Attachments The following attachments cannot be sent through Care Everywhere. * Low blood sugar in people with diabetes ([place]ron[place]) [facility] SystemInstructionsNot on file documented in this [facility] SystemInstructionsNot on file [facility] SystemInstructionsNot on file documented in [facility] SystemInstructionsNot on file documented in this encounterLouis [facility] SystemInstructions* Attachments The following attachments cannot be sent through Care Everywhere. * High cholesterol (Micronesian) documented in this [facility] System Summary Purpose Family History No Family History Records FoundNo Family History Records FoundNo Family History Records Found Advance Directives No Advanced Directives Records FoundNo Advanced Directives Records FoundNo Advanced Directives Records Found Additional Source Comments INFORMATION SOURCE (unrecogn ized section and content) DATE CREATED AUTHOR 10/16/2021 [facility] DATE CREATED AUTHOR AUTHOR'S ORGANIZ ATION 09/09/2024 [facility] DATE CREATED AUTHOR AUTHOR'S ORGANIZ ATION [facility] Reason for Visit (unrecogniz ed section and content) Reason Comments Annual Exam Reason Comments Med Refill Reason Comments Diabetes Hypertension Reason Comments Diabetes Reason Comments low blood sugar issues Reason Onset Date Comments Med Refill 01/30/2024 Reason Onset Date Comments Med Refill 05/03/2024 Reason Comments Follow-up EST PT F/U 1 YR L/S TLM, LABS PCP, SCHED W/PT, PT AWARE INS IS OON AND WANTS TO KEEP APPT Care Teams (unrecognized sec tion and content) Manager Continuous Improvement Relationship Specialty Start Date End Date Ezio Anderson, ACCOUNT RESOLUTION SPECIALIST-PRESSFITTER [address], [place] [address] PCP - General Family Medicine 10/19/21 Manager Continuous Improvement Relationship Specialty Start Date End Date Ezio Anderson [facility] [address] [place] [address] PCP - General Family Medicine 10/19/21 Manager Continuous Improvement Relationship Specialty Start Date End Date Ezio Anderson [facility] [address] [place] [address] PCP - General Family Medicine 10/19/21 Manager Continuous Improvement Relationship Specialty Start Date End Date Ezio Anderson [facility] [address] [place] [address] PCP - General Family Medicine 10/19/21 Manager Continuous Improvement Relationship Specialty Start Date End Date Ezio Anderson [facility] [address] [place] [address] PCP - General Family Medicine 10/19/21 Manager Continuous Improvement Relationship Specialty Start Date End Date Ezio Anderson [facility] [address] [place] [address] PCP - General Family Medicine 10/19/21 Manager Continuous Improvement Relationship Specialty Start Date End Date Ezio Anderson [facility] [address] [place] [address] PCP - General Family Medicine 10/19/21 Manager Continuous Improvement Relationship Specialty Start Date End Date Justin Ezio Link, [facility] [address] [place] [address] PCP - General Family Medicine 10/19/21 Manager Continuous Improvement Relationship Specialty Start Date End Date Justin HELIO Deras [address] [place] [address] PCP - General Family Medicine 10/19/21 FOR RECORDS PERTAINING TO PATIENTS WHO ARE OR HAVE BEEN ENROLLED IN A CHEMICAL DEPENDENCY/SUBSTANCEABUSE PROGRAM, SOME INFORMATION MAY BE OMITTED. This clinical summary was aggregated from multiple sources. Caution should be exercised in using it in the provision of clinical care. This summary normalizes information from multiple sources, and as a consequence, information in this document may materially change the coding, format and clinical context of patient data. In addition, data may be omitted in some cases. CLINICAL DECISIONS SHOULD BE BASED ON THE PRIMARY CLINICAL RECORDS. [facility] [employer] [facility]. provides no warranty or guarantee of the accuracy or completeness of information in this document.
== END 2024-12-22 09:29 | disposition home or self-care (01) ==
LOC: LAB 09:29
PROVIDERS: PCP Nurse Practitioner; Visit Provider Nurse Practitioner
DX: E11.65 Type 2 diabetes mellitus with hyperglycemia (principal)
CPT/HCPCS: 36415; 83036